=== PATIENT | male | born 1955 | race Caucasian/White ===

== ENCOUNTER 2018-10-13 11:59 | Day surgery (SDC) | payer OTHER ==
[~2018-10-13] VITALS: Ht 177.8 cm; Wt 117.8 kg
[~2018-10-13 11:59] MED LIST: Aspirin EC81 MG PO; Glipizide-Metf1 EAC2 PO; HYDCHL50 PO; JARDIANCE25 MG PO; LOSARTAN POTAS100 MG PO; METO100ER PO; METTREX2.5 PO; MULTI VITAMIN1 EACH PO; NAPR220 PO; OCUVITE ADULT1 EACH PO; POTCHL10ER PO; Pravachol20 MG PO; Psyllium Fibe0.52 GM PO; TAMS.4ER PO
--- NOTE | 2018-10-13 13:45 | NUR ---
10/13/18 3838 May Jordan INJECTED 1 CC SALINE TO RAISE POLYP FOR POLYPECTOMY.
--- NOTE | 2018-10-13 13:46 | NUR ---
10/13/18 6656 May Jordan INJECTED 1 CC SALINE TO RAISE POLYP FOR POLYPECTOMY.
== END 2018-10-13 14:09 | disposition home or self-care (01) ==
LOC: ORSCSDS 11:59
PROVIDERS: Internal Medicine Gastroenterology
PROC: 0DBP8ZX Excision of Rectum, Via Natural or Artificial Opening Endoscopic, Diagnostic (ICD-10-PCS; principal; 2018-10-13 13:30)
DX: Z12.11 Encounter for screening for malignant neoplasm of colon (principal); D12.8 Benign neoplasm of rectum; K57.30 Diverticulosis of large intestine without perforation or abscess without bleeding; K64.8 Other hemorrhoids; E11.9 Type 2 diabetes mellitus without complications; I10 Essential (primary) hypertension; G47.33 Obstructive sleep apnea (adult) (pediatric); E66.01 Morbid (severe) obesity due to excess calories; Z68.37 Body mass index [BMI] 37.0-37.9, adult; Z79.899 Other long term (current) drug therapy; Z79.82 Long term (current) use of aspirin
CPT/HCPCS: 82947; 88305; J2405; J7120

== ENCOUNTER 2024-12-21 12:29 | Inpatient (IN) | payer OTHER ==
[~2024-12-21] VITALS: Ht 177.8 cm; Wt 95.9 kg
[2024-12-21] VITALS (25 sets, daily range): BP systolic 107–134; BP diastolic 65–82
[~2024-12-21 12:29] MED LIST changes: -CARV3.125 PO; -DOCU100 PO; -FURO20 PO; -IRON TABLET PO; -MAGNESIUM OXID500 MG PO; -MELATONIN5 M1 PO; -MIDODRINE HCL10 M2 PO; -MIRALAX17 GM PO; -OMEGA-3 FISH O1 EAC6 PO; -OZEMPIC0.25 MG/02 SC; -PANT40 PO; -POTA10T PO; -PRAV20 PO; -PROP10 PO; -SPIR50 PO; -SULTRIDS PO
[2024-12-21] MEDS ORDERED: NS 1,000 ML IV SCH ×2 (13:15→13:30)
[2024-12-21 13:25] LABS: BASOPHILS ABSOLUTE AUTO 0.09 K/mm3 (0.00-0.23); BASOPHILS PERCENT AUTO 0 % (0-2); EOSINOPHILS ABSOLUTE AUTO 0.02 K/mm3 (0.00-0.68); EOSINOPHILS PERCENT AUTO 0 % (0-6); Hematocrit 49.8 % (37.0-53.0); Hemoglobin 17.6 g/dL (13.5-17.5); IMMATURE GRAN ABSOLUTE AUTO 0.58 K/mm3 (0.00-0.10); IMMATURE GRAN PERCENT AUTO 2 % (0-1); LYMPHOCYTES ABSOLUTE AUTO 2.96 K/mm3 (0.84-5.20); LYMPHOCYTES PERCENT AUTO 10 % (21-46); MONOCYTES ABSOLUTE AUTO 1.72 K/mm3 (0.16-1.47); MONOCYTES PERCENT AUTO 6 % (4-13); Mean Corpuscular HGB 27.3 pg (26.0-34.0); Mean Corpuscular HGB Conc 35.3 g/dL (31.5-36.5); Mean Corpuscular Volume 77 fL (80-100); Mean Platelet Volume 8.7 fL (9.1-12.4); NEUTROPHILS ABSOLUTE AUTO 23.22 K/mm3 (1.96-9.15); NEUTROPHILS PERCENT AUTO 81 % (41-73); Platelet Count 479 K/mm3 (150-400); RDW Coefficient Variation 15.2 % (11.7-14.2); RDW Standard Deviation 40.8 fL (35.1-46.3); Red Blood Cell Count 6.45 M/mm3 (4.30-5.90); White Blood Cell Count 28.59 K/mm3 (4.00-11.30)
[2024-12-21] MEDS ORDERED: CALCIUM GLUC IN NACL, ISO-OSM 100 ML IV ONE (13:30)
[2024-12-21 13:41] LABS: Source, Urine Clean Catch
[2024-12-21 13:44] LABS: Appearance, Urine Clear (Clear); Bilirubin, Urine Neg (Neg); Blood, Urine Neg (Neg); Color, Urine Yellow (P-Yellow); Glucose Qualitative, Urine 4+ (Neg); Ketones, Urine Neg (Neg); Leukocyte Esterase, Urine Neg (Neg); Nitrite, Urine Neg (Neg); Protein, Urine Neg (Neg); Specific Gravity, Urine 1.015 (1.003-1.022); Urobilinogen, Urine NORM (Normal)
[2024-12-21 13:48] LABS: Magnesium, Blood 2.9 mg/dL (1.6-2.4)
[2024-12-21 14:01] LABS: Albumin, Blood 2.4 g/dL (3.4-5.0); Albumin/Globulin Ratio 0.7 (0.8-1.8); Bilirubin, Total 0.8 mg/dL (0.1-1.0); Bun/Creatinine Ratio 38.5 (12.0-20.0); Calcium, Blood 7.9 mg/dL (8.5-10.1); Creatinine, Blood 1.3 mg/dL (0.60-1.20); Globulin, Blood 3.4 g/dL (2.2-4.0); Total Protein, Blood 5.8 g/dL (6.4-8.2)
[2024-12-21] MEDS ORDERED: SODIUM CHLORIDE 3% IV SCH (14:05)
[2024-12-21] MEDS ORDERED: Insulin Regular 100 Unit/ML 1ML Dose IV ONE (14:05)
[2024-12-21] MEDS ORDERED: Polyethylene Glycol 3350 17 gm PO PRN (15:20)
[2024-12-21] MEDS ORDERED: FLU VACC TS2024-25(6MOS UP)/PF 45 MCG/0.5 ML SYRINGE IM SCH (15:20)
[2024-12-21 15:22] LABS: International Normalized Ratio 1.24; Prothrombin Time Results 13.1 Sec (9.7-11.5)
[2024-12-21] MEDS ORDERED: CefTRIAXone Sodium 1,000 MG in NS 100 ML IV SCH (16:00)
[2024-12-21 16:17] LABS: Osmolality, Urine 624 mos/kg (15-1400)
[2024-12-21 16:21] LABS: Sodium, Urine, Random <5 mmol/L (20-110)
[2024-12-21] MEDS ORDERED: Insulin Human Lispro 100 Units/ML 3ML Syringe SC SCH (16:30)
[2024-12-21 16:44] LABS: Automated BF RBC Count 0.038 M/mm3 (0-0); Automated BF WBC Count 0.807 K/mm3 (0-999)
[2024-12-21 16:46] LABS: Body Fluid WBC Count 807 /mm3 (0-999); RBC Count, Body Fluid 38000 /mm3 (0-0)
[2024-12-21] MEDS ORDERED: Sodium Bicarb 8.4% Inj 150 MEQ in Dextrose 5% 1,000 ML IV SCH (16:55)
[2024-12-21 17:25] LABS: Total Cell Count, Body Fluid 100
[2024-12-21 17:27] LABS: Appearance, Body Fluid Cloudy (Clear); Color, Body Fluid Red (None-Yellow)
--- NOTE | 2024-12-21 18:17 | NUR ---
PT SUMMARY THIS RN ASSUMED CARE OF PT FROM ED AT 1630. PT IS ALERT AND ORIENTED X4, CALLS APPROPRIATLEY. PT HEART RATE IS IN ST DEGREE AV BLOCK FROM EKG IN ED, MONITOR SHOWS SINUS RYLAN, BLOOD PRESSURE STABLE AT 116/75 MAP OF 87, PT DENIES CHEST PAIN UPON ASSESSMENT. PT SOUNDS CLEAR/DIMINISHED ON ROOM AIR SATTING >95% PT HAS LOPEZ CATHETER DRAINING TO GRAVITY. POTASSIUM HAS BEEN HIGH AT 7, HAS BEEN NOTIFIED OF PT ARRIVAL TO ICU, IS CONSULTED, BMP IS PENDING STILL. NO OTHER INTERVENTIONS AT THIS TIME. PT GOT ONE LITER PARACENTISIS OFF COLLECTED FOR TESTING. PLAN OF CARE CONTINUED.
[2024-12-21 18:23] LABS: Bun/Creatinine Ratio 43.4 (12.0-20.0); Calcium, Blood 8.2 mg/dL (8.5-10.1); Creatinine, Blood 1.13 mg/dL (0.60-1.20)
[2024-12-21 18:24] LABS: Potassium, Blood 6.6 mmol/L (3.5-5.5)
[2024-12-21] MEDS ORDERED: Sodium Zirconium Cyclosilicate 10 GM Packet PO SCH (18:30)
--- NOTE | 2024-12-21 18:44 | NUR ---
PT UPDATE. THIS RN CALLED ABOUT CRITICALLY HIGH POTASSIUM AND LOW SODIUM. WANTED LOKELMA NOW 10 GM AND THEN EVERY 8 HOURS. NO OTHER INTERVENTIONS AT THIS TIME. PT WAS TRANSFERED TO ROOM ICU 9 FOR STAFFING PURPOSES. PLAN OF CARE CONTINUED.
--- NOTE | 2024-12-21 19:48 | NUR ---
ASSUMPTION OF CARE ASSUMED CARE OF PATIENT AT 1900, BEDSIDE SHIFT REPORT RECEIVED FROM ASPEN RN. PT RESTING IN BED, ALERT AND ORIENTED X4. PT ANSWERS QUESTIONS APPROPRIATELY, FOLLOWS DIRECTION WHEN PROMPTED AND IS ABLE TO MAKE HIS NEEDS KNOWN. PT MOVES EXTREMITIES EQUALLY BILATERALLY. HR 50-60'S SINUS, MAP >65. PT DENIES CP/PRESSURE. PT ON RA, OXYGEN SATURATION >95%. ABDOMEN SOFT, BOWEL TONES ACTIVE THROUGHOUT, PT DENIES N/V. LOPEZ IN PLACE PATENT DRAINING YELLOW URINE TO GRAVITY. PIV IN PLACE TO RAC AND LFA. SODIUM BICARD INFUSING AT 100MLS/HR. BED IN LOWEST POSITON, CALL LIGHT WITHIN REACH, PT FAMILY AT THE BEDSIDE. CARE CONTINUES.
[2024-12-21 20:40] LABS: Bun/Creatinine Ratio 45.3 (12.0-20.0); Calcium, Blood 7.5 mg/dL (8.5-10.1); Creatinine, Blood 1.06 mg/dL (0.60-1.20); Potassium, Blood 6.3 mmol/L (3.5-5.5)
[2024-12-21] MEDS ORDERED: Furosemide 10 MG/ML 4ML Vial IV ONE (20:50)
[2024-12-21] MEDS ORDERED: Albumin (Human) 25gm/100ml 100 ML IV SCH (21:00)
[2024-12-21] MEDS ORDERED: Melatonin 5 MG Tablet PO SCH (21:00)
[2024-12-21] MEDS ORDERED: Docusate Sodium/Senna 1 Tab PO SCH (21:00)
--- NOTE | 2024-12-21 22:46 | NUR ---
PT UPDATE CALLED AND SPOKE WITH DR. SOSA CAMPOSING PT LABS. ORDERS RECEIVED FOR LASIX, SEE EMAR. PLAN TO RECHECK LABS IN AM. CARE CONTINUES.
[2024-12-22] VITALS (52 sets, daily range): BP systolic 91–126; BP diastolic 54–110
[2024-12-22] MEDS ORDERED: Insulin Human Lispro 100 Units/ML 3ML Syringe SC SCH
[2024-12-22 04:54] LABS: Beta-hydroxybutyrate 0.9 mg/dL (0.2-2.8)
[2024-12-22 04:59] LABS: Albumin, Blood 3.9 g/dL (3.4-5.0); Bilirubin, Total 1.2 mg/dL (0.1-1.0); Bun/Creatinine Ratio 42.9 (12.0-20.0); Calcium, Blood 8.3 mg/dL (8.5-10.1); Creatinine, Blood 1.12 mg/dL (0.60-1.20); Potassium, Blood 4.9 mmol/L (3.5-5.5); Total Protein, Blood 5.9 g/dL (6.4-8.2)
--- NOTE | 2024-12-22 06:03 | NUR ---
SHIFT SUMMARY PT CONTINUES TO REST IN BED, SLEEPING BUT AROUSABLE. PT ORIENTED X4, ANSWERS QUESTIONS APPROPRIATELY, FOLLOWS DIRECTION WHEN PROMTPED AND IS ABLE TO MAKE HIS NEEDS KNOWN. PT MOVES EXTREMITIES EQUALLY BILATERALLY. HR 50-70'S SINUS, MAP >65. PT DENIES CP/PRESSURE. PT PLACED ON 2LPM VIA NC WHILE SLEEPING, OXYGEN SATURATION >95%. ABDOMEN SOFT, BOWEL TONES ACTIVE THROUGHOUT. TEMP LOPEZ IN PLACE PATENT DRAINING YELLOW URINE TO GRAVITY. PIV IN PLACE TO RAC AND LFA SL. BED IN LOWEST POSITION, CALL LIGHT WITHIN REACH, CARE CONTINUES.
[2024-12-22] MEDS ORDERED: Sodium Zirconium Cyclosilicate 10 GM Packet PO SCH (07:30)
--- NOTE | 2024-12-22 09:39 | NUR ---
UPDATE ASSUMED CARE OF PT @ 0700. PT INITIALLY IN BED, A&OX4. PT STATES HE IS FEELING MUCH BETTER AND READY TO GET UP. TOLERATING PO INTAKE. PT UP TO BSC WITH 1P SBA THIS AM. PT DID WELL AMBULATING WITHOUT ASSISTANCE. HAD SMALL BM. LOPEZ CATHETER REMOVED. NOW IN RECLINER WITH CALL LIGHT. PT DENIES COMPLAINTS AT THIS TIME.
[2024-12-22] MEDS ORDERED: MAGNESIUM OXID500 MG PO (10:51)
[2024-12-22] MEDS ORDERED: FURO20 PO (11:26)
[2024-12-22] MEDS ORDERED: SPIR50 PO (11:27)
[2024-12-22] MEDS ORDERED: DOCU100 PO (11:28)
[2024-12-22] MEDS ORDERED: OMEGA-3 FISH O1 EAC6 PO (11:29)
[2024-12-22] MEDS ORDERED: POTA10T PO (11:30)
[2024-12-22] MEDS ORDERED: PRAV20 PO (11:30)
[2024-12-22] MEDS ORDERED: OZEMPIC0.25 MG/02 SC (11:31)
[2024-12-22] MEDS ORDERED: PROP10 PO (11:31)
--- NOTE | 2024-12-22 11:37 | NUR ---
MEDICATIONS MED LIST RECEIVED FROM JAYLEN GONZALES, UPDATED LIST IN [place]. LAST VISIT NOTES ALSO IN PHYSICAL CHART.
[2024-12-22] MEDS ORDERED: CefTRIAXone Sodium 1,000 MG in NS 100 ML IV SCH (12:00)
--- NOTE | 2024-12-22 17:02 | NUR ---
SHIFT SUMMARY PT REMAINS A&OX4. AMBULATING TO CHAIR AND COMMODE WITH SBA TO MANAGE LINES. TOLERATING PO INTAKE WELL. NOT HAVING DIFFICULTY URINATING. HAS NO COMPLAINTS CURRENTLY, INQUIRING ABOUT GOING HOME. PT NOW MEDICAL STATUS.
--- NOTE | 2024-12-22 20:34 | NUR ---
ASSUMPTION OF CARE: ASSUMED CARE OF PT FROM CHIKA GLORIA AT 1900. PT MED STATUS NO TELE. ALERT AND ORIENTED, MAKING NEEDS KNOWN AND FOLLOWING COMMANDS. ON RA WITH SPO2 94% WITH SPOT CHECK, DENIES SOB. LUNGS CLEAR/DIM. SBP 115, DENIES CP/PRESSURE. VOIDING INTO COMMODE IND. PIV TO LH AND RAC BOTH PATENT AND SALINE LOCKED. TOLERATING PO INTAKE WITH NO C/O N/V. BED LOW AND LOCKED, CALL LIGHT IN REACH.
[2024-12-22] MEDS ORDERED: Pravastatin Sodium 20 MG Tab PO SCH (21:00)
--- NOTE | 2024-12-23 00:42 | NUR ---
UPDATE: PT TRANSFERRED TO MEDICAL FLOOR ROOM 326 VIA WHEELCHAIR, REPORT GIVEN TO TAVO DE LA PAZ. ALL BELONGING SENT WITH PT.
--- NOTE | 2024-12-23 02:20 | NUR ---
SHIFT SUMMARY/ICU TRANSFER NOTE: PT TRANSFERRED FROM ICU TO MED FLOOR @0050. PT BROUGHT ALL HIS BELONINGS WITH HIM. EDUCATED MAINTENANCE AND ENGINEERING MANAGER LIGHT, FALL PRECAUTIONS. PT TRANSFERRED FROM W/C TO HOSPITAL BED INDEPENDENTLY, PT IS AMBULATORY. PT DENIES PAIN AND DISCOMFORT. MRI QUESTIONARY COMPLETED AND SCANNED TO IMAGING. PT IS A/O X4, ABLE TO MAKE HIS NEEDS KNOWN AND COOPERATIVE WITH CARE. PLAN IS FOR MRI TODAY. BED AT THE LOWEST POSITION, CALL LIGHT W/I REACH.
[2024-12-23 03:24] VITALS: BP 122/84
--- NOTE | 2024-12-23 03:56 | NUR ---
NEW T-ORDER FROM : [facility] Q6HRS. ENTERED TO MD2U, SEE EMAR.
[2024-12-23 05:03] LABS: Hematocrit 45.3 % (37.0-53.0); Mean Corpuscular HGB 27.5 pg (26.0-34.0); Mean Corpuscular HGB Conc 35.3 g/dL (31.5-36.5); Mean Corpuscular Volume 78 fL (80-100); Mean Platelet Volume 8.9 fL (9.1-12.4); Platelet Count 307 K/mm3 (150-400); RDW Coefficient Variation 15.3 % (11.7-14.2); RDW Standard Deviation 43.2 fL (35.1-46.3); Red Blood Cell Count 5.81 M/mm3 (4.30-5.90); White Blood Cell Count 18.43 K/mm3 (4.00-11.30)
[2024-12-23 05:31] LABS: Albumin, Blood 2.9 g/dL (3.4-5.0); Albumin/Globulin Ratio 1.2 (0.8-1.8); Bun/Creatinine Ratio 40.7 (12.0-20.0); Calcium, Blood 7.7 mg/dL (8.5-10.1); Creatinine, Blood 0.91 mg/dL (0.60-1.20); Globulin, Blood 2.4 g/dL (2.2-4.0); Percent Saturation 17.6 % (20.0-50.0); Phosphorus, Blood 3.6 mg/dL (2.5-4.9); Potassium, Blood 4.7 mmol/L (3.5-5.5); Total Protein, Blood 5.3 g/dL (6.4-8.2)
[2024-12-23] MEDS ORDERED: Insulin Human Lispro 100 Units/ML 3ML Syringe SC SCH (06:00)
[2024-12-23 07:54] VITALS: BP 114/76
[2024-12-23] MEDS ORDERED: Carvedilol 3.125 MG Tab PO SCH (08:00)
[2024-12-23] MEDS ORDERED: Tamsulosin HCl 0.4 MG Cap PO SCH (09:00)
[2024-12-23] MEDS ORDERED: Polyethylene Glycol 3350 17 gm PO SCH (09:00)
[2024-12-23] MEDS ORDERED: Docosahexanoic Acid/EPA 1,000 MG CAP PO SCH (09:00)
[2024-12-23] MEDS ORDERED: Spironolactone 25 MG Tab PO SCH (09:00)
[2024-12-23] MEDS ORDERED: Furosemide 40 MG Tab PO SCH (09:00)
[2024-12-23 15:23] VITALS: BP 106/69
[2024-12-23] MEDS ORDERED: POTA10T PO (16:22)
[2024-12-23] MEDS ORDERED: Sodium, Potassium,Mag Sulfates 354 ML PO ONE (17:00)
[2024-12-23] MEDS ORDERED: Furosemide 80 MG Tab PO SCH (18:00)
--- NOTE | 2024-12-23 18:49 | NUR ---
PATIENT A/OX4, UP INDEPENDENTLY IN ROOM. VSS, ON RA. 1200 ML FLUID RESTRICTION. PARACENTESIS ORDER FOR THIS EVENING. NPO AFTER 1000 TOMORROW FOR EGD. BOWEL PREP GIVEN FOR CONSTIPATION PER MD ORDER. Q6 HOURS BLOOD SUGARS, COVERAGE PER SLIDING SCALE. NO NEW CONCERNS THIS SHIFT. PATIENT ABLE TO MAKE NEEDS KNOWN.
[2024-12-23] MEDS ORDERED: IRON TABLET PO (18:56)
[2024-12-23 19:49] VITALS: BP 94/73
[2024-12-23] MEDS ORDERED: NS 250 ML IV PRN (20:20)
[2024-12-24] VITALS (12 sets, daily range): BP systolic 91–115; BP diastolic 59–80
--- NOTE | 2024-12-24 02:57 | NUR ---
SHIFT SUMMARY PT HAS MULTIPLE LIQUID STOOLS D/T BOWEL PREP ORDER FOR C/O CONSTIPATION. PT DID NOT HAVE THE PLANNED THORACENTESIS @HS OR DURING THIS SHIFT. PT DENIES PAIN AND DISCOMFORT. VSS. Q6 BG 257. 1.2L FLUID RESTRICTION. PLAN IS TO HAVE EGD TODAY, NPO AFTER 1000. H20 AND ICE CHIPS UNTIL THEN. BED AT THE LOWEST POSITION, CALL LIGHT W/I REACH.
[2024-12-24 06:02] LABS: Hematocrit 44.6 % (37.0-53.0); Hemoglobin 15.5 g/dL (13.5-17.5); Mean Corpuscular HGB 27.5 pg (26.0-34.0); Mean Corpuscular HGB Conc 34.8 g/dL (31.5-36.5); Mean Corpuscular Volume 79 fL (80-100); Mean Platelet Volume 9.1 fL (9.1-12.4); Platelet Count 322 K/mm3 (150-400); RDW Coefficient Variation 15.5 % (11.7-14.2); RDW Standard Deviation 44.1 fL (35.1-46.3); Red Blood Cell Count 5.63 M/mm3 (4.30-5.90); White Blood Cell Count 14.76 K/mm3 (4.00-11.30)
[2024-12-24 06:35] LABS: Albumin, Blood 2.5 g/dL (3.4-5.0); Bilirubin, Total 0.6 mg/dL (0.1-1.0); Bun/Creatinine Ratio 41.3 (12.0-20.0); Calcium, Blood 7.7 mg/dL (8.5-10.1); Creatinine, Blood 0.92 mg/dL (0.60-1.20); Globulin, Blood 2.6 g/dL (2.2-4.0); Potassium, Blood 3.3 mmol/L (3.5-5.5); Total Protein, Blood 5.1 g/dL (6.4-8.2)
[2024-12-24] MEDS ORDERED: Lactated Ringer's 1,000 ML IV SCH (12:50)
[2024-12-24] MEDS ORDERED: Albumin (Human) 25gm/100ml 100 ML IV SCH (13:00)
[2024-12-24 13:45] LABS: Bun/Creatinine Ratio 33.3 (12.0-20.0); Calcium, Blood 8.1 mg/dL (8.5-10.1); Creatinine, Blood 1.05 mg/dL (0.60-1.20); Potassium, Blood 3.7 mmol/L (3.5-5.5)
--- NOTE | 2024-12-24 13:52 | NUR ---
12/24/24 1352 Misbah Rudolph History, Chart, Medications and Allergies reviewed before start of procedure.Pre-Op teaching done. Patient verbalizes understanding. See Anesthesia record. MONITOR INTACT WITH CONTINUOUS PULSE OXIMETRY, CONTINUOUS END TITAL CO2, 3-LEAD EKG AND INTERMITTENT BLOOD PRESSURE.3-LEAD EKG REVIEWED WITH PHYSICIAN PRIOR TO START OF PROCEDURE.O2 VIA POM INTACT THROUGHOUT SEDATION/PROCEDURE.
[2024-12-24] MEDS ORDERED: propofoL 20 ML IV ONE (13:54)
--- NOTE | 2024-12-24 19:17 | NUR ---
SHIFT SUMMARY A/Ox4, PLEASANT AND COOPERATIVE WITH CARE, ABLE TO MAKE NEEDS KNOWN, AND USES CALL LIGHT APPROPRIATLEY. PT DENIES PAIN. PARACENTESIS COMPLETED TODAY - 8 L/MIN REMOVED, ALBUMIN ADMINISTERED PER ORDERS. EDG ALSO COMPLETED THIS SHIFT. PT VITALS WNL POST OP. TOLERATING DIET AND MEDS WELL. REMAINS ON 1200 ML FLUID RESTRICTION. PT CURRENTLY RESTING IN HOSPITAL BED WITH BED IN LOWEST POSITION, VISITING WITH FAMILY. CALL LIGHT WITHIN REACH. INDPENDENT IN ROOM.
[2024-12-25 04:28] VITALS: BP 91/65
--- NOTE | 2024-12-25 05:02 | NUR ---
SHIFT SUMMARY ADMITTED FOR HYPERKALEMIA - RESOLVED. FULL CODE. HE IS HOPEFUL FOR DC HOME TODAY. PARACENTESIS AND UPPER EGD PERFORMED ON PREVIOUS SHIFT. GI CONSULT IS DR. MYERS. 1200 ML FLUID RESTRICTION. HE WILL DC ON PROPHYLACTIC PO BACTRIM HE RECEIVES WEEKLY PARACENTESIS PROCEDURES. HX OF KHAN, CIRRHOSIS, ESOPHAGEAL VARICES, CHRONIC ASCITES. HE IS ON RA, A&O X4, INDEPENDENT.
[2024-12-25 07:22] LABS: HEPATITIS B SURFACE ANTIBODY <3.10 IU/L
[2024-12-25 07:26] VITALS: BP 104/66
[2024-12-25] MEDS ORDERED: Trimethoprim/Sulfamethoxazole SS Tab PO SCH (09:00)
[2024-12-25] MEDS ORDERED: Midodrine 5 MG Tab PO PRN (09:35)
[2024-12-25] MEDS ORDERED: Midodrine 5 MG Tab PO ONE ×2 (09:40→11:15)
[2024-12-25 10:38] VITALS: BP 107/70
--- NOTE | 2024-12-25 11:30 | NUR ---
NOTE PT BLOOD PRESSURE WAS 104/66. HELD COREG, ALDACTONE, AND LASIX PER DOC ORDERS, REPORTED NO PARAMETERS LISTED FOR COREG. DR. DAI ORDERED ONE TIME DOSE OF MIDODRINE 5MG. BREAK RN GAVE MED. RECHECKED BP 30 MIN LATER, BLOOD PRESSURE WAS 107/70. PT REPORTED NO S/S OF HYPOTENSION. DR. DAI ORDERED ANOTHER ONE TIME ORDER OF MIDODRINE AND TO GIVE COREG ALDACTONE AND LASIX. PT IN BED, BED IN LOWEST POSITION CALL LIGHT IN REACH.
[2024-12-25 12:08] VITALS: BP 98/72
[2024-12-25 14:08] LABS: HEPATITIS A ANTIBODIES, TOTAL Negative (Negative)
[2024-12-25 14:15] VITALS: BP 93/65
[2024-12-25] MEDS ORDERED: CARV3.125 PO (14:37)
[2024-12-25] MEDS ORDERED: MELATONIN5 M1 PO (14:39)
[2024-12-25] MEDS ORDERED: MIRALAX17 GM PO (14:39)
[2024-12-25] MEDS ORDERED: MIDODRINE HCL10 M2 PO (14:39)
[2024-12-25] MEDS ORDERED: TAMS.4ER PO (14:40)
[2024-12-25] MEDS ORDERED: SULTRIDS PO (14:40)
[2024-12-25] MEDS ORDERED: PANT40 PO (14:40)
[2024-12-25 16:15] VITALS: BP 100/77
--- NOTE | 2024-12-25 18:44 | NUR ---
DISCHARGE NOTE PT A&OX4. PT ADMITTED DUE TO HYPOKALEMIA. PT INDEPENDENT IN ROOM. PT ON FLUID RESTRICTION. LAST BLOOD PRESSURE WAS 100/77, GAVE DOSE OF MIDODRINE PER ORDERS. PT REPORTED NO S/S OF CHEST PAIN OR HYPOTENSION. WENT OVER DISCHARGE INSTRUCTIONS AND MEDS. MEDS FAXED TO PREFERRED PHARMACY. PT LEFT WITH BELONINGS. IV D/C. PT ESCORTED VIA WHEELCHAIR TO PERSONAL VEHICLE.
[2024-12-25 19:43] LABS: HBV CORE ANTIBODIES,TOTAL Negative (Negative)
== END 2024-12-25 16:32 | disposition home or self-care (01) | DRG 640 ==
LOC: ER 12:29 → ICUE 15:17 → MEDS 15:17 → ICUE 16:33 → MEDS 12-23 01:10
PROVIDERS: Emergency Medicine; Hospitalist; Internal Medicine; Internal Medicine Gastroenterology; Nurse Anesthetist, Certified Registered; Physician Assistant; ADMIT Internal Medicine
PROC: 0W9G3ZZ Drainage of Peritoneal Cavity, Percutaneous Approach (ICD-10-PCS; principal; 2024-12-21)
PROC: 0DB78ZX Excision of Stomach, Pylorus, Via Natural or Artificial Opening Endoscopic, Diagnostic (ICD-10-PCS; 2024-12-24)
PROC: 0W9G3ZZ Drainage of Peritoneal Cavity, Percutaneous Approach (ICD-10-PCS; 2024-12-24)
DX: E87.5 Hyperkalemia (principal); K65.2 Spontaneous bacterial peritonitis; R18.8 Other ascites; I85.10 Secondary esophageal varices without bleeding; N17.9 Acute kidney failure, unspecified; J90 Pleural effusion, not elsewhere classified; K76.6 Portal hypertension; E87.1 Hypo-osmolality and hyponatremia; K74.69 Other cirrhosis of liver; E87.70 Fluid overload, unspecified; N40.1 Benign prostatic hyperplasia with lower urinary tract symptoms; R33.8 Other retention of urine; K76.89 Other specified diseases of liver; I10 Essential (primary) hypertension; E78.5 Hyperlipidemia, unspecified; E66.01 Morbid (severe) obesity due to excess calories; G47.33 Obstructive sleep apnea (adult) (pediatric); D75.838 Other thrombocytosis; K59.09 Other constipation; K26.9 Duodenal ulcer, unspecified as acute or chronic, without hemorrhage or perforation; E86.0 Dehydration; I44.0 Atrioventricular block, first degree; I45.10 Unspecified right bundle-branch block; E11.65 Type 2 diabetes mellitus with hyperglycemia; E88.810 Metabolic syndrome; T50.995A Adverse effect of other drugs, medicaments and biological substances, initial encounter; K75.81 Nonalcoholic steatohepatitis (NASH); E87.6 Hypokalemia; R55 Syncope and collapse; K74.60 Unspecified cirrhosis of liver; R93.2 Abnormal findings on diagnostic imaging of liver and biliary tract; K80.20 Calculus of gallbladder without cholecystitis without obstruction; D75.1 Secondary polycythemia; Z79.84 Long term (current) use of oral hypoglycemic drugs; Z79.82 Long term (current) use of aspirin; Z68.30 Body mass index [BMI] 30.0-30.9, adult
CPT/HCPCS: 36415; 49083; 51702; 51798; 71045; 74183; 76705; 76770; 80048; 80053; 81003; 82010; 82728; 82947; 83540; 83550; 83605; 83735; 83930; 83935; 84100; 84145; 84300; 85025; 85027; 85610; 85730; 86704; 86708; 87040; 87070; 87075; 87205; 88305; 88342; 89051; 93005; 93010; 94760; 96361-59; 96374-59; 96375-59; 99285-25; A9270; A9581; J0612; J0696; J1815; J1940; J2704; J7030; J7050; J7070; J7120; P9047

== ENCOUNTER → 2024-12-21 | Outpatient (CLI) | payer OTHER ==
[~2024-12-21] MED LIST changes: +CARV3.125 PO; +DOCU100 PO; +FURO20 PO; +IRON TABLET PO; +MAGNESIUM OXID500 MG PO; +MELATONIN5 M1 PO; +MIDODRINE HCL10 M2 PO; +MIRALAX17 GM PO; +OMEGA-3 FISH O1 EAC6 PO; +OZEMPIC0.25 MG/02 SC; +PANT40 PO; +POTA10T PO; +PRAV20 PO; +PROP10 PO; +SPIR50 PO; +SULTRIDS PO
[2024-12-21 11:36] LABS: BASOPHILS ABSOLUTE AUTO 0.12 K/mm3 (0.00-0.23); BASOPHILS PERCENT AUTO 0 % (0-2); EOSINOPHILS ABSOLUTE AUTO 0.03 K/mm3 (0.00-0.68); EOSINOPHILS PERCENT AUTO 0 % (0-6); Hematocrit 50.6 % (37.0-53.0); Hemoglobin 17.7 g/dL (13.5-17.5); IMMATURE GRAN ABSOLUTE AUTO 0.77 K/mm3 (0.00-0.10); IMMATURE GRAN PERCENT AUTO 3 % (0-1); LYMPHOCYTES ABSOLUTE AUTO 2.94 K/mm3 (0.84-5.20); LYMPHOCYTES PERCENT AUTO 10 % (21-46); MONOCYTES ABSOLUTE AUTO 1.67 K/mm3 (0.16-1.47); MONOCYTES PERCENT AUTO 5 % (4-13); Mean Corpuscular HGB 27.2 pg (26.0-34.0); Mean Corpuscular Volume 78 fL (80-100); Mean Platelet Volume 8.8 fL (9.1-12.4); NEUTROPHILS PERCENT AUTO 82 % (41-73); Platelet Count 424 K/mm3 (150-400); White Blood Cell Count 30.83 K/mm3 (4.00-11.30)
[2024-12-21 11:50] LABS: Albumin, Blood 2.4 g/dL (3.4-5.0); Albumin/Globulin Ratio 0.8 (0.8-1.8); Bilirubin, Total 0.9 mg/dL (0.1-1.0); Bun/Creatinine Ratio 34.3 (12.0-20.0); Calcium, Blood 8.3 mg/dL (8.5-10.1); Creatinine, Blood 1.43 mg/dL (0.60-1.20); Globulin, Blood 2.9 g/dL (2.2-4.0); Total Protein, Blood 5.3 g/dL (6.4-8.2)
[2024-12-21 12:00] LABS: Potassium, Blood 7.8 mmol/L (3.5-5.5)
== END | disposition home or self-care (01) ==
LOC: LAB SHORT 11:31 → LAB 11:31
PROVIDERS: Family Medicine
DX: R55 Syncope and collapse (principal)
CPT/HCPCS: 80053; 85025

== ENCOUNTER 2025-01-07 15:25 | Observation (INO) | payer OTHER ==
[~2025-01-07] VITALS: Ht 177.8 cm; Wt 102.1 kg
[~2025-01-07 15:25] MED LIST changes: +CARV3.125 PO; +DOCU100 PO; +FURO20 PO; +IRON TABLET PO; +MAGNESIUM OXID500 MG PO; +MELATONIN5 M1 PO; +MIDODRINE HCL10 M2 PO; +MIRALAX17 GM PO; +OMEGA-3 FISH O1 EAC6 PO; +OZEMPIC0.25 MG/02 SC; +PANT40 PO; +POTA10T PO; +PRAV20 PO; +PROP10 PO; +SPIR50 PO; +SULTRIDS PO
[2025-01-07 16:11] LABS: BASOPHILS ABSOLUTE AUTO 0.08 K/mm3 (0.00-0.23); BASOPHILS PERCENT AUTO 1 % (0-2); EOSINOPHILS ABSOLUTE AUTO 0.17 K/mm3 (0.00-0.68); EOSINOPHILS PERCENT AUTO 1 % (0-6); Hematocrit 45.6 % (37.0-53.0); Hemoglobin 16.2 g/dL (13.5-17.5); IMMATURE GRAN ABSOLUTE AUTO 0.24 K/mm3 (0.00-0.10); IMMATURE GRAN PERCENT AUTO 2 % (0-1); LYMPHOCYTES ABSOLUTE AUTO 2.38 K/mm3 (0.84-5.20); LYMPHOCYTES PERCENT AUTO 19 % (21-46); MONOCYTES ABSOLUTE AUTO 1.65 K/mm3 (0.16-1.47); MONOCYTES PERCENT AUTO 13 % (4-13); Mean Corpuscular HGB 28.2 pg (26.0-34.0); Mean Corpuscular HGB Conc 35.5 g/dL (31.5-36.5); Mean Corpuscular Volume 79 fL (80-100); Mean Platelet Volume 8.6 fL (9.1-12.4); NEUTROPHILS ABSOLUTE AUTO 7.97 K/mm3 (1.96-9.15); NEUTROPHILS PERCENT AUTO 64 % (41-73); Platelet Count 350 K/mm3 (150-400); RDW Coefficient Variation 16.2 % (11.7-14.2); RDW Standard Deviation 46.3 fL (35.1-46.3); Red Blood Cell Count 5.74 M/mm3 (4.30-5.90); White Blood Cell Count 12.49 K/mm3 (4.00-11.30)
[2025-01-07 16:24] LABS: International Normalized Ratio 1.17; Prothrombin Time Results 12.4 Sec (9.7-11.5)
[2025-01-07] MEDS ORDERED: Diazepam 2 MG Tab PO ONE (17:00)
[2025-01-07 17:34] LABS: Albumin, Blood 2.4 g/dL (3.4-5.0); Albumin/Globulin Ratio 0.8 (0.8-1.8); Bilirubin, Total 0.3 mg/dL (0.1-1.0); Bun/Creatinine Ratio 40.6 (12.0-20.0); Calcium, Blood 7.5 mg/dL (8.5-10.1); Creatinine, Blood 1.28 mg/dL (0.60-1.20); Globulin, Blood 3.1 g/dL (2.2-4.0); Potassium, Blood 5.2 mmol/L (3.5-5.5); Total Protein, Blood 5.5 g/dL (6.4-8.2)
[2025-01-07] MEDS ORDERED: Ondansetron HCl 2 MG / ML 2ML Vial IV PRN (19:00)
[2025-01-07] MEDS ORDERED: Furosemide 10 MG/ML 4ML Vial IV ONE (19:00)
[2025-01-07 19:15] LABS: Source, Urine Clean Catch
[2025-01-07 19:17] LABS: Appearance, Urine Clear (Clear); Bilirubin, Urine Neg (Neg); Blood, Urine Neg (Neg); Color, Urine Yellow (P-Yellow); Glucose Qualitative, Urine 4+ (Neg); Ketones, Urine Neg (Neg); Leukocyte Esterase, Urine Neg (Neg); Nitrite, Urine Neg (Neg); Protein, Urine Neg (Neg); Specific Gravity, Urine 1.015 (1.003-1.022); Urobilinogen, Urine NORM (Normal)
[2025-01-07 19:41] LABS: Base Excess Venous -2.7 mmol/L; Bicarbonate Venous 23.4 mmol/L (24.0-30.0); PCO2 Venous 28.9 mmHg (38-42); pH Blood Venous 7.47 (7.34-7.37)
[2025-01-07] MEDS ORDERED: Midodrine 5 MG Tab PO ONE (20:00)
[2025-01-07] MEDS ORDERED: Trimethoprim/Sulfamethoxazole DS Tab PO SCH (21:00)
[2025-01-07] MEDS ORDERED: Insulin Human Lispro 100 Units/ML 3ML Syringe SC SCH (21:00)
[2025-01-07] MEDS ORDERED: Furosemide 10 MG/ML 4ML Vial ONE (21:28)
[2025-01-07 23:07] LABS: Bun/Creatinine Ratio 38.9 (12.0-20.0); Calcium, Blood 7.7 mg/dL (8.5-10.1); Creatinine, Blood 1.26 mg/dL (0.60-1.20); Potassium, Blood 4.5 mmol/L (3.5-5.5)
[2025-01-08] VITALS (7 sets, daily range): BP systolic 91–108; BP diastolic 62–94
--- NOTE | 2025-01-08 05:42 | NUR ---
SHIFT SUMMARY: PT ARRIVED ON UNIT ABLE TO MAKE HIS NEEDS KNOW, VSS, ON ROOM AIR, CONT OF BAB, IS ABLE TO BE UP ADLIB FOR BATHROOM USE USES BEDSIDE COMODE, 1.2L OUT THIS SHIFT POST LASIX DOSE, LOAN [place] ABD PARACENTESIS SET FOR DAY SHIFT, CALL LIGHT AND FREQUENTLY USED ITEMS WITH IN REACH AT THIS TIME
[2025-01-08] MEDS ORDERED: Pantoprazole Sodium 40 MG Tab PO SCH (06:00)
[2025-01-08 06:27] LABS: Hemoglobin 16.2 g/dL (13.5-17.5); Mean Corpuscular HGB 27.9 pg (26.0-34.0); Mean Corpuscular HGB Conc 35.2 g/dL (31.5-36.5); Mean Corpuscular Volume 79 fL (80-100); Mean Platelet Volume 8.5 fL (9.1-12.4); Platelet Count 342 K/mm3 (150-400); RDW Coefficient Variation 16.9 % (11.7-14.2); RDW Standard Deviation 46.2 fL (35.1-46.3); White Blood Cell Count 12.43 K/mm3 (4.00-11.30)
[2025-01-08 06:52] LABS: Albumin, Blood 2.5 g/dL (3.4-5.0); Albumin/Globulin Ratio 0.8 (0.8-1.8); Bilirubin, Total 0.4 mg/dL (0.1-1.0); Bun/Creatinine Ratio 41.4 (12.0-20.0); Calcium, Blood 7.9 mg/dL (8.5-10.1); Creatinine, Blood 1.16 mg/dL (0.60-1.20); Globulin, Blood 3.1 g/dL (2.2-4.0); Magnesium, Blood 2.5 mg/dL (1.6-2.4); Potassium, Blood 4.7 mmol/L (3.5-5.5); Total Protein, Blood 5.6 g/dL (6.4-8.2)
[2025-01-08] MEDS ORDERED: Carvedilol 3.125 MG Tab PO SCH (08:00)
[2025-01-08] MEDS ORDERED: Tamsulosin HCl 0.4 MG Cap PO SCH (09:00)
[2025-01-08] MEDS ORDERED: Docusate Sodium Liquid 100 MG UDC PO SCH (09:00)
[2025-01-08] MEDS ORDERED: Magnesium Oxide 400 MG Tab PO SCH (09:00)
[2025-01-08] MEDS ORDERED: Docosahexanoic Acid/EPA 1,000 MG CAP PO SCH (09:00)
[2025-01-08] MEDS ORDERED: Midodrine 5 MG Tab PO SCH (09:00)
[2025-01-08] MEDS ORDERED: Empagliflozin 25 MG TAB PO SCH (09:00)
[2025-01-08] MEDS ORDERED: Furosemide 10 MG/ML 4ML Vial IV SCH (09:00)
[2025-01-08] MEDS ORDERED: Spironolactone 25 MG Tab PO SCH (09:00)
[2025-01-08] MEDS ORDERED: Polyethylene Glycol 3350 17 gm PO SCH (09:00)
[2025-01-08] MEDS ORDERED: Albumin (Human) 25gm/100ml 100 ML IV ONE (12:35)
[2025-01-08 13:55] LABS: Calcium, Blood 7.9 mg/dL (8.5-10.1); Creatinine, Blood 1.18 mg/dL (0.60-1.20); Potassium, Blood 5.1 mmol/L (3.5-5.5)
--- NOTE | 2025-01-08 15:00 | NUR ---
TRANSFER OF CARE PT HAD PARACENTESIS DONE TODAY 12 L REMOVED, ALBUMIN TRANSFUSED AFTER PER ORDERS. PT MAP REMAINS ABOVE 65 WITH SOFT B/P. B/P HAS BEEN LOW 100'S SYSTOLIC TO 90'S. REMAINED AFEBRILE, SINUS RYTHM. PT HAS BEEN IND AMBULATING ROOM, CALLS APPROPRIATELY, MAKES NEEDS KNOWN. A/0X4. RECENT LABS SHOW IMPROVED SODIUM LEVELS, LABS ARE PT BASELINE PER . TOLERATING INTAKE AND OUTPUT.
--- NOTE | 2025-01-08 15:21 | NUR ---
report recieved at 1512. this rn to take over in care.
--- NOTE | 2025-01-08 16:26 | NUR ---
DISCHARGE UPDATE DISCHARGE PACKET GONE OVER WITH PT AT 1600. PT DISCHARGED AT 1620 VIA WHEELCHAIR AND ON RA. PT ABLE TO DRESS SELF AND TRANSFER SELF TO AJND FROM WHEELCHAIR ON HIS OWN, TOLERATED WELL. DISCHARGE PACKET WITH PT AT TIME OF DISCHARGE. PT PERSONAL BELONGINGS IN BAD AND WITH PT FRIEND AT TIME OF DISCHARGE.
[2025-01-08] MEDS ORDERED: Melatonin 5 MG Tablet PO SCH (21:00)
[2025-01-08] MEDS ORDERED: Pravastatin Sodium 20 MG Tab PO SCH (21:00)
== END 2025-01-08 16:26 | disposition home or self-care (01) ==
LOC: ER 15:25 → PCU 15:26 → ER 18:57 → PCU 18:57 → ERHOLD 18:57 → PCU 20:57
PROVIDERS: Emergency Medicine; Nurse Practitioner Acute Care; ADMIT Internal Medicine
DX: E87.1 Hypo-osmolality and hyponatremia (principal); K74.60 Unspecified cirrhosis of liver; E87.5 Hyperkalemia; D72.829 Elevated white blood cell count, unspecified; E11.65 Type 2 diabetes mellitus with hyperglycemia; I95.9 Hypotension, unspecified; N40.0 Benign prostatic hyperplasia without lower urinary tract symptoms; E78.5 Hyperlipidemia, unspecified; I10 Essential (primary) hypertension; Z79.4 Long term (current) use of insulin
CPT/HCPCS: 36415; 49083; 80048; 80053; 81003; 82010; 82803; 82947; 83735; 83935; 85025; 85027; 85610; 93005; 93010; 94762; 99284-25; A9270; G0378; J1938; J1940; P9047

== ENCOUNTER 2025-01-16 16:42 | Inpatient (IN) | payer OTHER ==
[~2025-01-16] VITALS: Ht 177.8 cm; Wt 99.8 kg
[2025-01-16 17:27] LABS: BASOPHILS ABSOLUTE AUTO 0.07 K/mm3 (0.00-0.23); BASOPHILS PERCENT AUTO 0 % (0-2); EOSINOPHILS ABSOLUTE AUTO 0.03 K/mm3 (0.00-0.68); EOSINOPHILS PERCENT AUTO 0 % (0-6); Hematocrit 48.8 % (37.0-53.0); Hemoglobin 17.4 g/dL (13.5-17.5); IMMATURE GRAN ABSOLUTE AUTO 0.52 K/mm3 (0.00-0.10); IMMATURE GRAN PERCENT AUTO 3 % (0-1); LYMPHOCYTES ABSOLUTE AUTO 2.11 K/mm3 (0.84-5.20); LYMPHOCYTES PERCENT AUTO 12 % (21-46); MONOCYTES ABSOLUTE AUTO 1.63 K/mm3 (0.16-1.47); MONOCYTES PERCENT AUTO 9 % (4-13); Mean Corpuscular HGB 28.1 pg (26.0-34.0); Mean Corpuscular HGB Conc 35.7 g/dL (31.5-36.5); Mean Corpuscular Volume 79 fL (80-100); Mean Platelet Volume 8.4 fL (9.1-12.4); NEUTROPHILS ABSOLUTE AUTO 13.33 K/mm3 (1.96-9.15); NEUTROPHILS PERCENT AUTO 75 % (41-73); Platelet Count 409 K/mm3 (150-400); RDW Coefficient Variation 17.3 % (11.7-14.2); RDW Standard Deviation 46.1 fL (35.1-46.3); Red Blood Cell Count 6.19 M/mm3 (4.30-5.90); White Blood Cell Count 17.69 K/mm3 (4.00-11.30)
[2025-01-16] MEDS ORDERED: BASAGLAR K100 UNIT/3 SC (17:29)
[2025-01-16] MEDS ORDERED: FIASP 100100 UNIT/3 SC (17:30)
[2025-01-16] MEDS ORDERED: Lactated Ringer's 500 ML IV ONE (17:30)
[2025-01-16 17:48] LABS: Free Thyroxine 0.97 ng/dL (0.70-1.60)
[2025-01-16 17:53] LABS: Thyroid Stimulating Hormone 0.772 uIU/mL (0.360-4.800); Triiodothyronine, Free 1.97 pg/mL (2.18-3.98)
[2025-01-16 17:56] LABS: Albumin, Blood 2.8 g/dL (3.4-5.0); Albumin/Globulin Ratio 0.9 (0.8-1.8); Bilirubin, Total 0.7 mg/dL (0.1-1.0); Bun/Creatinine Ratio 50.4 (12.0-20.0); Calcium, Blood 7.9 mg/dL (8.5-10.1); Creatinine, Blood 1.29 mg/dL (0.60-1.20); Globulin, Blood 3.2 g/dL (2.2-4.0); Potassium, Blood 5.5 mmol/L (3.5-5.5)
[2025-01-16] MEDS ORDERED: NS 1,000 ML IV SCH (18:05)
[2025-01-16 19:47] LABS: Source, Urine Clean Catch
[2025-01-16 19:49] LABS: Appearance, Urine Clear (Clear); Bilirubin, Urine Neg (Neg); Blood, Urine Neg (Neg); Color, Urine Yellow (P-Yellow); Glucose Qualitative, Urine 4+ (Neg); Ketones, Urine Neg (Neg); Leukocyte Esterase, Urine Neg (Neg); Nitrite, Urine Neg (Neg); Protein, Urine Neg (Neg); Urobilinogen, Urine NORM (Normal)
[2025-01-16] MEDS ORDERED: NS 250 ML IV PRN (22:00)
[2025-01-16] MEDS ORDERED: Azithromycin 500 MG in NS 250 ML IV SCH (22:00)
[2025-01-16] MEDS ORDERED: CefTRIAXone Sodium 1,000 MG in NS 100 ML IV SCH (22:00)
[2025-01-16 22:52] VITALS: BP 96/67
[2025-01-16] MEDS ORDERED: Aldactone50 MG PO (23:13)
[2025-01-16] MEDS ORDERED: Insulin Glargine-Yfgn 100 Unit/mL 3 ML SYR SC SCH (23:46)
[2025-01-17 04:27] VITALS: BP 91/61
--- NOTE | 2025-01-17 04:44 | NUR ---
SHIFT SUMMARY REPORT PATIENT IS ALERTAND ORIENTED X 4, SHE COMPLAINED OF PERSISTANT HEADACE ,TAB TYLNOL WAS GIVEN , SHE SLEPT WELL,AWAKEN THIS MORNING WITH SAME COMPLAINT.ALL HER DUE MEDICATION WERE SERVED, NURSING CRE RENDERED ,CALL LIGHT ANSWERED PROMPTLY AND SET WITHIN REACH OF THE PATIENT.
[2025-01-17 04:51] LABS: BASOPHILS ABSOLUTE AUTO 0.07 K/mm3 (0.00-0.23); BASOPHILS PERCENT AUTO 0 % (0-2); EOSINOPHILS ABSOLUTE AUTO 0.07 K/mm3 (0.00-0.68); EOSINOPHILS PERCENT AUTO 0 % (0-6); Hematocrit 45.1 % (37.0-53.0); Hemoglobin 16.1 g/dL (13.5-17.5); IMMATURE GRAN ABSOLUTE AUTO 0.48 K/mm3 (0.00-0.10); IMMATURE GRAN PERCENT AUTO 3 % (0-1); LYMPHOCYTES ABSOLUTE AUTO 2.46 K/mm3 (0.84-5.20); LYMPHOCYTES PERCENT AUTO 15 % (21-46); MONOCYTES ABSOLUTE AUTO 1.86 K/mm3 (0.16-1.47); MONOCYTES PERCENT AUTO 11 % (4-13); Mean Corpuscular HGB 28.1 pg (26.0-34.0); Mean Corpuscular HGB Conc 35.7 g/dL (31.5-36.5); Mean Corpuscular Volume 79 fL (80-100); Mean Platelet Volume 8.7 fL (9.1-12.4); NEUTROPHILS ABSOLUTE AUTO 12.08 K/mm3 (1.96-9.15); NEUTROPHILS PERCENT AUTO 71 % (41-73); Platelet Count 360 K/mm3 (150-400); RDW Coefficient Variation 16.6 % (11.7-14.2); RDW Standard Deviation 45.9 fL (35.1-46.3); Red Blood Cell Count 5.73 M/mm3 (4.30-5.90); White Blood Cell Count 17.02 K/mm3 (4.00-11.30)
--- NOTE | 2025-01-17 04:56 | NUR ---
SHIFT SUMMARY REPORT PATIENT WAS ADIMMITED ON OUR SHIFT, A KNOWN DIABETIC, WITH HYPONATREMIA,ALERT ORIENTED X 4,BROUGHT ON WHEEL CHAIR ,HAD AN EPISODE OF SYNCOPE,WITH DIZZYNESS, ABDOMINAL PARENTHESIS DONE 13.5 LITERS OF FLUID DRAINED A RESULT OF ASCITES SECONDARY TO (CIRRHOSIS OF LIVER). NON ALCOHOLIC ONE PERSON ASSIST, RECEIVED HIS DUE MEDICATIONS, FULL CODE , FEELS DIZZY WHEN GETTING UP, HYPOTENSIVE,ALSO BED SIDE COMMODE . PATIENT INSTRUCTED, AND OREIENT IN HIS ROOM CALL LIGHT BROUGHT WITHIN REACH OF THE PATIENT.
[2025-01-17 05:38] LABS: Albumin, Blood 2.3 g/dL (3.4-5.0); Albumin/Globulin Ratio 0.8 (0.8-1.8); Bilirubin, Total 0.5 mg/dL (0.1-1.0); Bun/Creatinine Ratio 57.7 (12.0-20.0); Calcium, Blood 7.9 mg/dL (8.5-10.1); Creatinine, Blood 1.11 mg/dL (0.60-1.20); Globulin, Blood 2.8 g/dL (2.2-4.0); Potassium, Blood 5.1 mmol/L (3.5-5.5); Total Protein, Blood 5.1 g/dL (6.4-8.2)
[2025-01-17] MEDS ORDERED: Pantoprazole Sodium 40 MG Tab PO SCH (06:00)
[2025-01-17 07:20] VITALS: BP 93/66
[2025-01-17] MEDS ORDERED: Carvedilol 3.125 MG Tab PO SCH (08:00)
[2025-01-17] MEDS ORDERED: Docosahexanoic Acid/EPA 1,000 MG CAP PO SCH (09:00)
[2025-01-17] MEDS ORDERED: Trimethoprim/Sulfamethoxazole DS Tab PO SCH (09:00)
[2025-01-17] MEDS ORDERED: Docusate Sodium 100 MG Cap PO SCH (09:00)
[2025-01-17] MEDS ORDERED: Furosemide 40 MG Tab PO SCH (09:00)
[2025-01-17] MEDS ORDERED: Polyethylene Glycol 3350 17 gm PO SCH (09:00)
[2025-01-17] MEDS ORDERED: Empagliflozin 25 MG TAB PO SCH (09:00)
[2025-01-17] MEDS ORDERED: Midodrine 5 MG Tab PO SCH ×2 (09:00)
[2025-01-17] MEDS ORDERED: Spironolactone 50 MG Tab PO SCH (09:00)
[2025-01-17] MEDS ORDERED: Enoxaparin 40 MG/0.4 ML SYR SC SCH (09:00)
[2025-01-17] MEDS ORDERED: Magnesium Oxide 400 MG Tab PO SCH (09:00)
[2025-01-17] MEDS ORDERED: Tamsulosin HCl 0.4 MG Cap PO SCH (09:00)
[2025-01-17 09:31] LABS: Bun/Creatinine Ratio 60.2 (12.0-20.0); Creatinine, Blood 1.08 mg/dL (0.60-1.20); Potassium, Blood 5.3 mmol/L (3.5-5.5)
[2025-01-17 10:14] VITALS: BP 100/73
[2025-01-17 14:11] VITALS: BP 98/59
[2025-01-17] MEDS ORDERED: Albumin (Human) 25gm/100ml 100 ML IV ONE (15:05)
[2025-01-17 17:51] VITALS: BP 93/67
[2025-01-17] MEDS ORDERED: Furosemide 10 MG/ML 10ML Vial IV SCH (18:00)
--- NOTE | 2025-01-17 18:16 | NUR ---
SHIFT SUMMARY- PT HAS HAD NO ACUTE CHANGE T/O THE SHIFT. HE IS ALERT AND ORIENTED 1PA WITH AMBULATION. DR WILBURN CAME TO SEE THE PT TODAY AND CHANGED THE LASIX TO IV WITH HOLD PARAMETERS. SODIUM IS STILL CRITICALLY LOW. PT RECIEVED A OT DOSE OF ALBUMIN. PT IS CURRENTLY SITTING UP IN BED AND HE IS ASKING FR STAFF TO HELP HIM GO FOR A WALK. WILL ATTEMPT TO WALK WITH PT IF TIME ALLOWS. WILL PASS ON TO NIGHT RN IN BEDSIDE REPORT.
[2025-01-17 19:12] VITALS: BP 90/71
[2025-01-17] MEDS ORDERED: Melatonin 5 MG Tablet PO SCH (21:00)
[2025-01-18 03:09] VITALS: BP 124/104
--- NOTE | 2025-01-18 04:00 | NUR ---
SHIFT SUMMARY PATIENT HAD NO ACUTE CHANGES. ALERT ORIENTED AND SBA TO BR. ON ROOM AIR. DENIES CHEST PAIN, SOB, AND N/V. VSS/AFEBRILE. SOFT BP'S. PIVS INTACT. IV ABXS INFUSED. CBG 227. CALL LIGHT IN REACH. BED IN LOWEST POSITION. WILL CONTINUE TO MONITOR UNTIL DAY SHIFT NURSE ASSUMES CARE.
[2025-01-18 06:07] LABS: BASOPHILS ABSOLUTE AUTO 0.08 K/mm3 (0.00-0.23); BASOPHILS PERCENT AUTO 1 % (0-2); EOSINOPHILS ABSOLUTE AUTO 0.19 K/mm3 (0.00-0.68); EOSINOPHILS PERCENT AUTO 2 % (0-6); Hematocrit 43.3 % (37.0-53.0); Hemoglobin 15.1 g/dL (13.5-17.5); IMMATURE GRAN ABSOLUTE AUTO 0.24 K/mm3 (0.00-0.10); IMMATURE GRAN PERCENT AUTO 2 % (0-1); LYMPHOCYTES ABSOLUTE AUTO 2.35 K/mm3 (0.84-5.20); LYMPHOCYTES PERCENT AUTO 19 % (21-46); MONOCYTES ABSOLUTE AUTO 1.49 K/mm3 (0.16-1.47); MONOCYTES PERCENT AUTO 12 % (4-13); Mean Corpuscular HGB 27.4 pg (26.0-34.0); Mean Corpuscular HGB Conc 34.9 g/dL (31.5-36.5); Mean Corpuscular Volume 79 fL (80-100); Mean Platelet Volume 8.5 fL (9.1-12.4); NEUTROPHILS ABSOLUTE AUTO 7.84 K/mm3 (1.96-9.15); NEUTROPHILS PERCENT AUTO 64 % (41-73); Platelet Count 357 K/mm3 (150-400); RDW Coefficient Variation 16.5 % (11.7-14.2); RDW Standard Deviation 46.8 fL (35.1-46.3); Red Blood Cell Count 5.51 M/mm3 (4.30-5.90); White Blood Cell Count 12.19 K/mm3 (4.00-11.30)
[2025-01-18 06:37] LABS: Albumin, Blood 2.8 g/dL (3.4-5.0); Anion Gap 12 mmol/L (3-11); Blood Urea Nitrogen 58 mg/dL (8-24); Bun/Creatinine Ratio 46.4 (12.0-20.0); CO2, Blood 23 mmol/L (21-32); Chloride, Blood 91 mmol/L (98-108); Creatinine, Blood 1.25 mg/dL (0.60-1.20); Glomerular Filtration Rate 62 (60-); Glucose, Blood 79 mg/dL (70-99); Phosphorus, Blood 4.1 mg/dL (2.5-4.9); Potassium, Blood 5.5 mmol/L (3.5-5.5); Sodium, Blood 120 mmol/L (136-145)
[2025-01-18 07:36] VITALS: BP 101/70
[2025-01-18] MEDS ORDERED: Docusate Sodium 100 MG Cap PO ONE (11:15)
[2025-01-18 12:33] VITALS: BP 95/67
[2025-01-18 17:00] VITALS: BP 96/64
--- NOTE | 2025-01-18 17:55 | NUR ---
SHIFT SUMMARY PT A&OX4, AMB W/ SBA, TOLERATING PO, VOIDING, AND DENIED PAIN. PT HYPOTENSIVE THIS AFTERNOON, BUT WAS ASYMPTOMATIC. HYPOTENSION MEDICATED PER EMAR. NO OTHER ACUTE CHANGES. CALL LIGHT WITHIN REACH AND PT ABLE TO MAKE NEEDS KNOWN.
[2025-01-18 19:47] VITALS: BP 99/64
[2025-01-19 01:57] VITALS: BP 96/64
--- NOTE | 2025-01-19 04:33 | NUR ---
SUMMARY: PT A/OX4, CALLS APPROPRIATELY TO SPECIFY NEEDS AND IS PLEASANT AND COOPERATIVE W/CARE. HE'S INDEPENDENT/SBA AND AWARE OF LIMITATIONS. 1200ML FR MAINTAINED AND PT USES URINAL AD SIDDHARTH. ABDO IS DISTENDED BUT SOFT/NONTENDER. HYPOTENSION PERSISTS W/BP 90'S/60'S BUT HE'S ASYMPTOMATIC AND SCHEDULED MIDODRINE WAS RECEIVED PER EMAR. IV ABX PROVIDED FOR PNM THEN SL'D. NO ACUTE CHANGES, VSS/AFEBRILE. WILL REPORT TO DAY RN.
[2025-01-19 05:41] LABS: BASOPHILS PERCENT AUTO 1 % (0-2); EOSINOPHILS ABSOLUTE AUTO 0.17 K/mm3 (0.00-0.68); EOSINOPHILS PERCENT AUTO 2 % (0-6); Hematocrit 45.7 % (37.0-53.0); Hemoglobin 16.1 g/dL (13.5-17.5); IMMATURE GRAN ABSOLUTE AUTO 0.23 K/mm3 (0.00-0.10); IMMATURE GRAN PERCENT AUTO 2 % (0-1); LYMPHOCYTES ABSOLUTE AUTO 2.19 K/mm3 (0.84-5.20); LYMPHOCYTES PERCENT AUTO 21 % (21-46); MONOCYTES ABSOLUTE AUTO 1.54 K/mm3 (0.16-1.47); MONOCYTES PERCENT AUTO 15 % (4-13); Mean Corpuscular HGB 28.2 pg (26.0-34.0); Mean Corpuscular HGB Conc 35.2 g/dL (31.5-36.5); Mean Corpuscular Volume 80 fL (80-100); Mean Platelet Volume 8.2 fL (9.1-12.4); NEUTROPHILS PERCENT AUTO 59 % (41-73); Platelet Count 314 K/mm3 (150-400); RDW Standard Deviation 48.2 fL (35.1-46.3); Red Blood Cell Count 5.71 M/mm3 (4.30-5.90); White Blood Cell Count 10.43 K/mm3 (4.00-11.30)
[2025-01-19 06:03] LABS: Albumin, Blood 2.5 g/dL (3.4-5.0); Anion Gap 11 mmol/L (3-11); Blood Urea Nitrogen 48 mg/dL (8-24); Bun/Creatinine Ratio 45.3 (12.0-20.0); CO2, Blood 21 mmol/L (21-32); Calcium, Blood 8.2 mg/dL (8.5-10.1); Chloride, Blood 93 mmol/L (98-108); Creatinine, Blood 1.06 mg/dL (0.60-1.20); Glomerular Filtration Rate 76 (60-); Glucose, Blood 84 mg/dL (70-99); Phosphorus, Blood 3.9 mg/dL (2.5-4.9); Potassium, Blood 5.7 mmol/L (3.5-5.5); Sodium, Blood 119 mmol/L (136-145)
--- NOTE | 2025-01-19 06:46 | NUR ---
CRITICAL SODIUM 119 THIS AM: MADE AWARE W/NEW ORDER RECEIVED TO RECHECK NA LEVEL AT 1000 AND HE PLANS TO RELAY RESULT TO [facility] WALLACE.
[2025-01-19 07:13] VITALS: BP 95/65
[2025-01-19] MEDS ORDERED: Docusate Sodium 100 MG Cap PO SCH (09:00)
[2025-01-19] MEDS ORDERED: CEFU500T30 PO (13:01)
[2025-01-19 13:03] VITALS: BP 91/59
--- NOTE | 2025-01-19 14:27 | NUR ---
DISCHARGE NOTE PT D/C HOME AT 1330. PT PROVIDED W/ VERBAL AND WRITTEN INSTRUCTIONS BY STUDENT RN GÓMEZ W/ SUPERVISION OF THIS RN. PT REPORTED UNDERSTANDING. PT A&OX4, AMB W/ SBA, TOLERATING PO, VOIDING, AND DENIED PAIN. PT HYPOTENSIVE, BUT ASYMPTOMATIC AND MEDICATED PER EMAR. THIS RN NOTIFIED OF PT'S NA AND K. BELONGINGS WERE RETURNED AND PT ESCOURTED OUT VIA W/C BY LIVING MANAGER AT 1405. WENT TO ROUND ON PT AFTER PT HAD BEEN D/C. THIS RN SPOKE W/ PROVIDER ABOUT PT'S LABS. PROVIDER'S OFFICE TO CONTACT PT.
== END 2025-01-19 14:08 | disposition home or self-care (01) | DRG 641 ==
LOC: ER 16:42 → MEDS 16:43
PROVIDERS: Hospitalist; Internal Medicine; Student in an Organized Health Care Education/Training Program; ADMIT Internal Medicine
DX: E87.1 Hypo-osmolality and hyponatremia (principal); J98.11 Atelectasis; K76.6 Portal hypertension; R18.8 Other ascites; N17.9 Acute kidney failure, unspecified; I95.81 Postprocedural hypotension; E87.5 Hyperkalemia; E87.79 Other fluid overload; K74.69 Other cirrhosis of liver; K75.81 Nonalcoholic steatohepatitis (NASH); E11.9 Type 2 diabetes mellitus without complications; E78.5 Hyperlipidemia, unspecified; I10 Essential (primary) hypertension; D72.829 Elevated white blood cell count, unspecified; N40.0 Benign prostatic hyperplasia without lower urinary tract symptoms; Z79.84 Long term (current) use of oral hypoglycemic drugs; Z79.4 Long term (current) use of insulin; Z79.2 Long term (current) use of antibiotics
CPT/HCPCS: 36415; 71045; 80048; 80053; 80069; 81003; 82947; 83605; 84145; 84295; 84439; 84443; 84481; 84484; 85025; 93005; 93010; 96365; 96368; 96372; 99285-25; A9270; G0378; J0456; J0696; J1650; J1815; J7050; P9047

== ENCOUNTER 2025-01-29 03:42 | Inpatient (IN) | payer OTHER ==
[2025-01-29] VITALS (10 sets, daily range): BP systolic 79–95; BP diastolic 60–71
[~2025-01-29] VITALS: Ht 177.8 cm; Wt 88.4 kg
[~2025-01-29 03:42] MED LIST changes: +Aldactone50 MG PO; +BASAGLAR K100 UNIT/3 SC; +CEFU500T30 PO; +FIASP 100100 UNIT/3 SC
[2025-01-29] MEDS ORDERED: Diltiazem HCl 5 MG / ML 5ML Vial IV ONE ×2 (03:55→04:20)
[2025-01-29 04:03] LABS: BASOPHILS ABSOLUTE AUTO 0.08 K/mm3 (0.00-0.23); BASOPHILS PERCENT AUTO 1 % (0-2); EOSINOPHILS ABSOLUTE AUTO 0.14 K/mm3 (0.00-0.68); EOSINOPHILS PERCENT AUTO 1 % (0-6); Hematocrit 42.5 % (37.0-53.0); Hemoglobin 14.8 g/dL (13.5-17.5); IMMATURE GRAN ABSOLUTE AUTO 0.24 K/mm3 (0.00-0.10); IMMATURE GRAN PERCENT AUTO 2 % (0-1); LYMPHOCYTES ABSOLUTE AUTO 2.14 K/mm3 (0.84-5.20); LYMPHOCYTES PERCENT AUTO 16 % (21-46); MONOCYTES PERCENT AUTO 13 % (4-13); Mean Corpuscular HGB 28.1 pg (26.0-34.0); Mean Corpuscular HGB Conc 34.8 g/dL (31.5-36.5); Mean Corpuscular Volume 81 fL (80-100); Mean Platelet Volume 8.6 fL (9.1-12.4); NEUTROPHILS ABSOLUTE AUTO 9.26 K/mm3 (1.96-9.15); NEUTROPHILS PERCENT AUTO 68 % (41-73); Platelet Count 361 K/mm3 (150-400); RDW Coefficient Variation 16.5 % (11.7-14.2); RDW Standard Deviation 48.2 fL (35.1-46.3); Red Blood Cell Count 5.26 M/mm3 (4.30-5.90); White Blood Cell Count 13.56 K/mm3 (4.00-11.30)
[2025-01-29] MEDS ORDERED: Midodrine 5 MG Tab PO ONE (04:20)
[2025-01-29 04:22] LABS: Source, Urine Clean Catch
[2025-01-29 04:24] LABS: Magnesium, Blood 2.4 mg/dL (1.6-2.4)
[2025-01-29 04:27] LABS: Albumin, Blood 2.2 g/dL (3.4-5.0); Albumin/Globulin Ratio 0.8 (0.8-1.8); Bilirubin, Total 0.3 mg/dL (0.1-1.0); Bun/Creatinine Ratio 62.7 (12.0-20.0); Calcium, Blood 7.7 mg/dL (8.5-10.1); Creatinine, Blood 1.18 mg/dL (0.60-1.20); Globulin, Blood 2.7 g/dL (2.2-4.0); Phosphorus, Blood 4.4 mg/dL (2.5-4.9); Potassium, Blood 5.1 mmol/L (3.5-5.5); Total Protein, Blood 4.9 g/dL (6.4-8.2)
[2025-01-29 04:40] LABS: Bilirubin, Urine Neg (Neg); Blood, Urine Neg (Neg); Glucose Qualitative, Urine 4+ (Neg); Ketones, Urine Neg (Neg); Leukocyte Esterase, Urine Neg (Neg); Nitrite, Urine Neg (Neg); Protein, Urine Neg (Neg); Specific Gravity, Urine 1.015 (1.003-1.022); Urobilinogen, Urine NORM (Normal)
[2025-01-29 04:45] LABS: Appearance, Urine Clear (Clear); Color, Urine Pale Yellow (P-Yellow)
[2025-01-29] MEDS ORDERED: Acetaminophen 325 MG TABLET PO PRN (06:05)
[2025-01-29] MEDS ORDERED: Ondansetron HCl 2 MG / ML 2ML Vial IV PRN (06:05)
[2025-01-29] MEDS ORDERED: Melatonin 5 MG Tablet PO PRN (06:10)
--- NOTE | 2025-01-29 07:09 | NUR ---
report recieved from ER nurse at 0704.
[2025-01-29] MEDS ORDERED: Insulin Human Lispro 100 Units/ML 3ML Syringe SC SCH (07:30)
[2025-01-29] MEDS ORDERED: SPIR25 PO (07:42)
[2025-01-29] MEDS ORDERED: FURO80 PO (07:43)
[2025-01-29] MEDS ORDERED: PRAV20 PO (07:46)
[2025-01-29] MEDS ORDERED: Carvedilol 3.125 MG Tab PO SCH ×3 (08:00→17:00)
[2025-01-29] MEDS ORDERED: Empagliflozin 25 MG TAB PO SCH (09:00)
[2025-01-29] MEDS ORDERED: Docusate Sodium 100 MG Cap PO SCH (09:00)
[2025-01-29] MEDS ORDERED: Tamsulosin HCl 0.4 MG Cap PO SCH (09:00)
[2025-01-29] MEDS ORDERED: Insulin Glargine-Yfgn 100 Unit/mL 3 ML SYR SC SCH (09:00)
[2025-01-29] MEDS ORDERED: Midodrine 5 MG Tab PO SCH (09:00)
--- NOTE | 2025-01-29 09:29 | NUR ---
UPDATE PT CONVERTED TO SINUS RHYTHM AT 0904. VS TAKEN, BP REMAINS SOFT, SEE CHART. MD NOTIFIED OF CONVERSION.
[2025-01-29] MEDS ORDERED: CefTRIAXone Sodium 1,000 MG in NS 100 ML IV SCH (10:00)
[2025-01-29] MEDS ORDERED: Furosemide 10 MG/ML 4ML Vial IV SCH ×2 (12:00→18:00)
--- NOTE | 2025-01-29 15:01 | NUR ---
0723 LATE ENTRY PT ARRIVED TO PCU AT 0723 VIA GURNEY AND ON RA. PT ABLE TO TRANSFER FROM GURNEY TO BED ON HIS OWN, TOLERATED FAIR. PT IN AFIB WITH CONTROLED RATE 90-100'S. PT DENIES CHEST PAIN/PRESSURE. PT BP'S SOFT, SEE CHART, PT ASYMPTOMATIC. PT A/OX4 AND CCOPERATIVE. PT NOTED THAT HE WAS SCHEDULED FOR A PARACENTESIS TODAY, PT RECIEVES THEM WEEKLY, AWARE.
--- NOTE | 2025-01-29 15:50 | NUR ---
PT RETURNED TO PCU ROOM AFTER PARACENTESIS. 11L REMOVED PER REPORT. PT REPORTS THAT BREATHING FEELS EASIER AND THAT HE IS MORE COMFORTABLE NOW. PHARMACY NOTIFIED OF AMOUNT OF FLUID REMOVED, ALBUMIN TO BE GIVEN PER PROTOCOL.
[2025-01-29] MEDS ORDERED: NS 250 ML IV PRN (16:00)
[2025-01-29] MEDS ORDERED: Albumin (Human) 25gm/100ml 100 ML IV SCH (16:00)
--- NOTE | 2025-01-29 18:43 | NUR ---
SHIFT SUMMARY PT IS A&0 X 4, ABLE TO EXPRESS NEEDS, COOPERATIVE WITH CARE. BPs HAVE BEEN CONSISTENTLY SOFT (SEE CHART), PT BEING TREATED PER EMAR. HR SWITCHED FROM A FIB TO SINUS RHYTHM THIS AM AND HAS SINCE CONTINUED TO STAY IN SINUS RHYTHM. O2 SATS IN 90s ON RM AIR. PARACENTESIS RECIEVED BY PT THIS AFTERNOON REMOVED 11 LITERS OF FLUID AND VASTLY IMPROVED PT's ABD DISTENTION. ALBUMIN CURRENTLY RUNNING PER EMAR.
--- NOTE | 2025-01-29 19:19 | NUR ---
STUDENT RN CHART REVIEW THIS RN OVERSAW, REVIEWED AND AGREES WITH STUDENT RN'S ASSESSMENTS AND CHARTING.
[2025-01-30 04:16] LABS: BASOPHILS ABSOLUTE AUTO 0.07 K/mm3 (0.00-0.23); BASOPHILS PERCENT AUTO 1 % (0-2); EOSINOPHILS ABSOLUTE AUTO 0.22 K/mm3 (0.00-0.68); EOSINOPHILS PERCENT AUTO 2 % (0-6); Hematocrit 42.3 % (37.0-53.0); Hemoglobin 14.7 g/dL (13.5-17.5); IMMATURE GRAN ABSOLUTE AUTO 0.14 K/mm3 (0.00-0.10); IMMATURE GRAN PERCENT AUTO 1 % (0-1); LYMPHOCYTES ABSOLUTE AUTO 2.02 K/mm3 (0.84-5.20); LYMPHOCYTES PERCENT AUTO 19 % (21-46); MONOCYTES ABSOLUTE AUTO 1.33 K/mm3 (0.16-1.47); MONOCYTES PERCENT AUTO 13 % (4-13); Mean Corpuscular HGB 27.9 pg (26.0-34.0); Mean Corpuscular HGB Conc 34.8 g/dL (31.5-36.5); Mean Corpuscular Volume 80 fL (80-100); Mean Platelet Volume 8.6 fL (9.1-12.4); NEUTROPHILS ABSOLUTE AUTO 6.65 K/mm3 (1.96-9.15); NEUTROPHILS PERCENT AUTO 64 % (41-73); Platelet Count 326 K/mm3 (150-400); RDW Coefficient Variation 16.4 % (11.7-14.2); Red Blood Cell Count 5.26 M/mm3 (4.30-5.90); White Blood Cell Count 10.43 K/mm3 (4.00-11.30)
[2025-01-30 04:29] VITALS: BP 99/64
[2025-01-30 04:44] LABS: Bun/Creatinine Ratio 57.1 (12.0-20.0); Calcium, Blood 8.3 mg/dL (8.5-10.1); Creatinine, Blood 1.05 mg/dL (0.60-1.20); Potassium, Blood 4.6 mmol/L (3.5-5.5)
[2025-01-30] MEDS ORDERED: Pantoprazole Sodium 40 MG Tab PO SCH (06:00)
--- NOTE | 2025-01-30 06:00 | NUR ---
SHIFT SUMMARY AOX4. VSS. TELE NSR HR 70. DENIES DYSPNEA, SPO2 98% ON RA. DENIES N/V. REPORTS BILAT LEG CRAMPS, MEDICATED W/TYLENOL & PT ABLE TO REST COMFORTABLY AFTER. NO FURTHER REPORTS OF DISCOMFORT. SBY ASSIST TO RESTROOM. CALL LIGHT IN REACH & PT ABLE TO MAKE NEEDS KNOWN.
[2025-01-30 07:17] VITALS: BP 97/64
[2025-01-30 08:54] VITALS: BP 100/65
[2025-01-30] MEDS ORDERED: Trimethoprim/Sulfamethoxazole DS Tab PO SCH (09:00)
[2025-01-30] MEDS ORDERED: Apixaban 5 MG Tab PO SCH (10:00)
[2025-01-30 11:26] VITALS: BP 90/61
[2025-01-30] MEDS ORDERED: Furosemide 10 MG/ML 4ML Vial IV SCH (13:00)
[2025-01-30 16:37] VITALS: BP 97/59
[2025-01-30] MEDS ORDERED: Polyethylene Glycol 3350 17 gm PO ONE (17:00)
[2025-01-30] MEDS ORDERED: Polyethylene Glycol 3350 17 gm PO PRN (17:00)
--- NOTE | 2025-01-30 17:14 | NUR ---
SHIFT SUMMARY PT A/OX4 AND COOPERATIVE OF CARE. PT ABLE TO EXPRESS NEEDS AND CALLED APPROPIATE. PT INDEPENDENT IN ROOM, TOLERATED WELL. PT BP'S RAMINED SOFT WITH STABLE MAPS, AWARE. PT HR REMAINED SR THSI SHIFT, NO REPORT OF CHEST PAIN/PRESSURE. OTHER VSS THROUGHOUT SHIFT WITH O2 SATS IN THE 90'S ON RA. PT CONTINUES TO REPORT THAT HIS BREATHING IS MUCH BETTER EVER SINCE PARACENTESIS YESTERDAY. PT DENIED SOB/DYSPNEA DURING SHIFT. PT WAS EAGER TO GO HOME TODAY, HAD DISCUSSSIONG WITH PT, PT AGREEBLE TO STAY.
[2025-01-30 20:41] VITALS: BP 89/56
--- NOTE | 2025-01-31 03:56 | NUR ---
SHIFT SUMMARY: PT IS PLEASANT AND COOPERATIVE WITH CARES, ALERT AND ORIENTED ABLE TO MAKE NEEDS KOWN, PT IS INDEPENDANT IN ROOM AND HAS GREAT BALANCE, VS- BP SOFT WITH MAP GOAL ABOVE 65 MET, PT STATES AGUILAR TTHIS IS NORMAL AND HE IS ASYMPTOMATIC AT THIS TIME, ALL OTHER VS WNL, PT CAN USE CALL LIGHT APPROPRIATELY, PERSONEL ITEMS WITH IN REACH AT THIS TIME
[2025-01-31 04:27] LABS: Bun/Creatinine Ratio 51.3 (12.0-20.0); Creatinine, Blood 1.19 mg/dL (0.60-1.20); Potassium, Blood 4.7 mmol/L (3.5-5.5)
[2025-01-31 07:30] VITALS: BP 91/64
[2025-01-31] MEDS ORDERED: Spironolactone 50 MG Tab PO SCH (09:00)
[2025-01-31 11:46] VITALS: BP 95/65
[2025-01-31] MEDS ORDERED: SULTRIDS PO (12:00)
--- NOTE | 2025-01-31 13:17 | NUR ---
DISCHARGE REVIEWED WITH PT . HE VERBALIZED UNDERSTANDING MEDS AND INST. FAMILY IN TO TAKE HOME. IV X2 PULLED INTACT. TELE REMOVED AND RETURNED. PT WHEELED TO DOOR BY AIDE AT 2134
== END 2025-01-31 14:00 | disposition home or self-care (01) | DRG 433 ==
LOC: ER 03:42 → ERHOLD 03:43 → PCU 03:43
PROVIDERS: Emergency Medicine; ADMIT Student in an Organized Health Care Education/Training Program
PROC: 0W9G3ZZ Drainage of Peritoneal Cavity, Percutaneous Approach (ICD-10-PCS; principal; 2025-01-29)
DX: K74.69 Other cirrhosis of liver (principal); E87.1 Hypo-osmolality and hyponatremia; R18.8 Other ascites; I85.10 Secondary esophageal varices without bleeding; K75.81 Nonalcoholic steatohepatitis (NASH); I48.0 Paroxysmal atrial fibrillation; E78.5 Hyperlipidemia, unspecified; E11.9 Type 2 diabetes mellitus without complications; I10 Essential (primary) hypertension; Z96.642 Presence of left artificial hip joint; N40.0 Benign prostatic hyperplasia without lower urinary tract symptoms; G47.33 Obstructive sleep apnea (adult) (pediatric); E66.01 Morbid (severe) obesity due to excess calories; Z87.19 Personal history of other diseases of the digestive system; Z98.890 Other specified postprocedural states; Z79.899 Other long term (current) drug therapy; Z79.85 Long-term (current) use of injectable non-insulin antidiabetic drugs; Z79.4 Long term (current) use of insulin; Z68.31 Body mass index [BMI] 31.0-31.9, adult
CPT/HCPCS: 36415; 49083; 71045; 80048; 80053; 81003; 82947; 83735; 84100; 84484; 85025; 93005; 93010; 93306; 94762; 96374; 96376; 99285-25; A9270; G0378; J0696; J1815; J1938; J7050; P9047

== ENCOUNTER 2025-03-19 16:35 | Inpatient (IN) | payer OTHER ==
[~2025-03-19] VITALS: Ht 172.7 cm; Wt 86.5 kg
[~2025-03-19 16:35] MED LIST changes: +FURO80 PO; +SPIR25 PO
[2025-03-19 17:17] LABS: BASOPHILS ABSOLUTE AUTO 0.02 K/mm3 (0.00-0.23); BASOPHILS PERCENT AUTO 0 % (0-2); EOSINOPHILS ABSOLUTE AUTO 0.11 K/mm3 (0.00-0.68); EOSINOPHILS PERCENT AUTO 1 % (0-6); Hematocrit 35.2 % (37.0-53.0); Hemoglobin 12.7 g/dL (13.5-17.5); IMMATURE GRAN ABSOLUTE AUTO 0.09 K/mm3 (0.00-0.10); IMMATURE GRAN PERCENT AUTO 1 % (0-1); LYMPHOCYTES ABSOLUTE AUTO 0.98 K/mm3 (0.84-5.20); LYMPHOCYTES PERCENT AUTO 8 % (21-46); MONOCYTES ABSOLUTE AUTO 1.32 K/mm3 (0.16-1.47); MONOCYTES PERCENT AUTO 10 % (4-13); Mean Corpuscular HGB Conc 36.1 g/dL (31.5-36.5); Mean Corpuscular Volume 83 fL (80-100); NEUTROPHILS ABSOLUTE AUTO 10.27 K/mm3 (1.96-9.15); NEUTROPHILS PERCENT AUTO 80 % (41-73); NRBC ABSOLUTE 0.00 K/mm3 (0.00-0.02); NRBC Auto 0.0 /100 WBC (0.0-0.2); Platelet Count 319 K/mm3 (150-400); RDW Coefficient Variation 15.6 % (11.7-14.2); RDW Standard Deviation 47.1 fL (35.1-46.3)
[2025-03-19 17:34] LABS: Alanine Aminotransfer (ALT/SGP 52.0 U/L (12-78); Albumin, Blood 2.5 g/dL (3.4-5.0); Albumin/Globulin Ratio 0.8 (0.8-1.8); Anion Gap 14.0 mmol/L (3-11); Aspartate Aminotrans (AST/SGOT 59.0 U/L (12-37); Bilirubin, Total 0.9 mg/dL (0.1-1.0); Blood Urea Nitrogen 121.0 mg/dL (8-24); CO2, Blood 24.0 mmol/L (21-32); Calcium, Blood 8.4 mg/dL (8.5-10.1); Chloride, Blood 93.0 mmol/L (98-108); Creatinine, Blood 1.84 mg/dL (0.60-1.20); Globulin, Blood 3.1 g/dL (2.2-4.0); Glucose, Blood 183.0 mg/dL (70-99); Potassium, Blood 3.6 mmol/L (3.5-5.5); Prothrombin Time Results 13.7 Sec (9.7-11.5); Sodium, Blood 127.0 mmol/L (136-145); Total Protein, Blood 5.6 g/dL (6.4-8.2)
[2025-03-19 19:01] LABS: Source, Urine Clean Catch
[2025-03-19 19:04] LABS: Bilirubin, Urine Neg (Neg); Color, Urine Yellow (P-Yellow); Glucose Qualitative, Urine Neg (Neg); Ketones, Urine Neg (Neg); Leukocyte Esterase, Urine Neg (Neg); Protein, Urine 1+ (Neg); Specific Gravity, Urine 1.010 (1.003-1.022); Urobilinogen, Urine NORM (Normal)
[2025-03-19] MEDS ORDERED: DiphenhydrAMINE HCL/Zinc Acet Cream TOP PRN (20:50)
[2025-03-19] MEDS ORDERED: Insulin Glargine-Yfgn 100 Unit/mL 3 ML SYR SC SCH (21:00)
[2025-03-19] MEDS ORDERED: CefTRIAXone Sodium 2,000 MG in NS 100 ML IV SCH (21:30)
[2025-03-19 22:19] VITALS: BP 108/77
[2025-03-20 00:09] VITALS: BP 99/74
[2025-03-20 04:18] VITALS: BP 98/68
[2025-03-20 05:30] LABS: BASOPHILS ABSOLUTE AUTO 0.04 K/mm3 (0.00-0.23); BASOPHILS PERCENT AUTO 0 % (0-2); EOSINOPHILS ABSOLUTE AUTO 0.30 K/mm3 (0.00-0.68); EOSINOPHILS PERCENT AUTO 3 % (0-6); Hematocrit 35.9 % (37.0-53.0); Hemoglobin 12.6 g/dL (13.5-17.5); IMMATURE GRAN ABSOLUTE AUTO 0.06 K/mm3 (0.00-0.10); IMMATURE GRAN PERCENT AUTO 1 % (0-1); LYMPHOCYTES ABSOLUTE AUTO 1.08 K/mm3 (0.84-5.20); LYMPHOCYTES PERCENT AUTO 10 % (21-46); MONOCYTES ABSOLUTE AUTO 1.38 K/mm3 (0.16-1.47); MONOCYTES PERCENT AUTO 13 % (4-13); Mean Corpuscular HGB Conc 35.1 g/dL (31.5-36.5); Mean Corpuscular Volume 84 fL (80-100); NEUTROPHILS ABSOLUTE AUTO 8.06 K/mm3 (1.96-9.15); NEUTROPHILS PERCENT AUTO 74 % (41-73); NRBC ABSOLUTE 0.00 K/mm3 (0.00-0.02); NRBC Auto 0.0 /100 WBC (0.0-0.2); Platelet Count 289 K/mm3 (150-400); RDW Coefficient Variation 15.6 % (11.7-14.2); RDW Standard Deviation 47.9 fL (35.1-46.3)
[2025-03-20 05:49] LABS: Alanine Aminotransfer (ALT/SGP 52.0 U/L (12-78); Albumin, Blood 2.6 g/dL (3.4-5.0); Albumin/Globulin Ratio 0.8 (0.8-1.8); Anion Gap 9.0 mmol/L (3-11); Aspartate Aminotrans (AST/SGOT 54.0 U/L (12-37); Bilirubin, Total 1.0 mg/dL (0.1-1.0); Blood Urea Nitrogen 109.0 mg/dL (8-24); CO2, Blood 26.0 mmol/L (21-32); Calcium, Blood 8.4 mg/dL (8.5-10.1); Chloride, Blood 97.0 mmol/L (98-108); Creatinine, Blood 1.66 mg/dL (0.60-1.20); Globulin, Blood 3.1 g/dL (2.2-4.0); Glucose, Blood 182.0 mg/dL (70-99); Potassium, Blood 3.4 mmol/L (3.5-5.5); Sodium, Blood 129.0 mmol/L (136-145); Total Protein, Blood 5.7 g/dL (6.4-8.2)
--- NOTE | 2025-03-20 06:25 | NUR ---
SHIFT SUMMARY PT IS ALERT AND ORIENTED TIMES 3. PT IS FULL CODE. ADMITTED FOR HEPATIC ENCEPHALOPATHY . PT HAS TELE READING SINUS RHYTHM 74. PT IS RECEPTIVE TO CARE. PT TAKES MEDICATION WHOLE WITH WATER. PT HAS LOPEZ IN PLACE DRAINING TO GRAVITY. PT APPEARED TO SLEEP ON AND OFF THROUGH THE NIGHT. BED IS IN LOW POSITION, RAILS TIMES TWO, AND CALL LIGHT WITHIN REACH.
[2025-03-20] MEDS ORDERED: Insulin Human Lispro 100 Units/ML 3ML Syringe SC SCH ×2 (07:30)
[2025-03-20 07:32] VITALS: BP 110/73
--- NOTE | 2025-03-20 08:54 | NUR ---
CALLED FOR IR CONSULT; SPOKE WITH DIVISION CHIEF SERVICE.
[2025-03-20] MEDS ORDERED: Lactobacil 2-S.Thermo-Bifido 1 1 Cap PO SCH (09:00)
[2025-03-20] MEDS ORDERED: Polyethylene Glycol 3350 17 gm PO SCH (09:00)
--- NOTE | 2025-03-20 09:36 | NUR ---
CALLED DR. SWAN HE WILL COME AND SEE THE PATIENT
[2025-03-20 11:36] VITALS: BP 111/82
[2025-03-20 15:36] VITALS: BP 110/70
--- NOTE | 2025-03-20 16:38 | NUR ---
SHIFT SUMMARY: NO EVENTS OR CHANGES WITH THE PATIENT THROUGHOUT THE SHIFT. PENDING A PARACENTESIS POSSIBLY 03/20/25 WHEN DX RADIOLOGY IS ON SITE TO DO IT. AUREATENT PLEASANT, NO COMPLAINTS, NO BM THIS SHIFT, VISITED BY PALLATIVE TODAY AND FAMILY. PATIENT IN BED,ALERT, CALL LIGHT WITHIN REACH, NO SIGNS OR DISTRESS, FAMILY AT BEDSIDE, PLAN OF CARE ONGOING.
[2025-03-20] MEDS ORDERED: Insulin Glargine-Yfgn 100 Unit/mL 3 ML SYR SC SCH (21:00)
[2025-03-20 21:05] VITALS: BP 140/88
[2025-03-21] VITALS (8 sets, daily range): BP systolic 96–116; BP diastolic 62–83
[2025-03-21 05:17] LABS: BASOPHILS ABSOLUTE AUTO 0.04 K/mm3 (0.00-0.23); BASOPHILS PERCENT AUTO 0 % (0-2); EOSINOPHILS ABSOLUTE AUTO 0.80 K/mm3 (0.00-0.68); EOSINOPHILS PERCENT AUTO 6 % (0-6); Hematocrit 36.4 % (37.0-53.0); Hemoglobin 13.0 g/dL (13.5-17.5); IMMATURE GRAN ABSOLUTE AUTO 0.06 K/mm3 (0.00-0.10); IMMATURE GRAN PERCENT AUTO 1 % (0-1); LYMPHOCYTES ABSOLUTE AUTO 1.12 K/mm3 (0.84-5.20); LYMPHOCYTES PERCENT AUTO 9 % (21-46); MONOCYTES ABSOLUTE AUTO 1.58 K/mm3 (0.16-1.47); MONOCYTES PERCENT AUTO 13 % (4-13); Mean Corpuscular HGB Conc 35.7 g/dL (31.5-36.5); Mean Corpuscular Volume 85 fL (80-100); NEUTROPHILS ABSOLUTE AUTO 8.94 K/mm3 (1.96-9.15); NEUTROPHILS PERCENT AUTO 71 % (41-73); NRBC ABSOLUTE 0.00 K/mm3 (0.00-0.02); NRBC Auto 0.0 /100 WBC (0.0-0.2); Platelet Count 282 K/mm3 (150-400); RDW Coefficient Variation 15.4 % (11.7-14.2); RDW Standard Deviation 47.9 fL (35.1-46.3)
[2025-03-21 05:44] LABS: Alanine Aminotransfer (ALT/SGP 54.0 U/L (12-78); Albumin, Blood 2.4 g/dL (3.4-5.0); Albumin/Globulin Ratio 0.7 (0.8-1.8); Anion Gap 8.0 mmol/L (3-11); Aspartate Aminotrans (AST/SGOT 58.0 U/L (12-37); Bilirubin, Total 0.7 mg/dL (0.1-1.0); Blood Urea Nitrogen 75.0 mg/dL (8-24); CO2, Blood 28.0 mmol/L (21-32); Calcium, Blood 8.1 mg/dL (8.5-10.1); Chloride, Blood 97.0 mmol/L (98-108); Creatinine, Blood 1.56 mg/dL (0.60-1.20); Globulin, Blood 3.3 g/dL (2.2-4.0); Glucose, Blood 147.0 mg/dL (70-99); Potassium, Blood 3.2 mmol/L (3.5-5.5); Sodium, Blood 130.0 mmol/L (136-145); Total Protein, Blood 5.7 g/dL (6.4-8.2)
--- NOTE | 2025-03-21 05:55 | NUR ---
SHIFT SUMMARY PT IS ALERT AND ORIENTED TIMES 3. PT IS FULL CODE. ADMITTED FOR HEPATIC ENCEPHALOPATHY . PT IS RECEPTIVE TO CARE. PT HAS IR PROVIDER CONSULT THIS AM AND PARACENTESIS ON SATURDAY. PT TAKES MEDICATION WHOLE WITH WATER. PT HAS PT HAS LOPEZ IN PLACE DRAINING TO GRAVITY. PT AT ONE POINT WAS CONFUSED AND USED PADDED BENCH IN ROOM BEDSIDE COMMODE. PT WAS SHOWERED AND CLEANED UP, WITH EVS CLEANING ROOM. PT APPEARED TO SLEEP ON AND OFF THROUGH THE NIGHT. BED IS IN LOW POSITION, RAILS TIMES TWO, AND CALL LIGHT WITHIN REACH.
[2025-03-21] MEDS ORDERED: Albumin (Human) 25gm/100ml 100 ML IV SCH (15:30)
[2025-03-21 16:01] LABS: Automated BF RBC Count 0.044 M/mm3 (0-0); Automated BF WBC Count 0.426 K/mm3 (0-999)
[2025-03-21 16:14] LABS: RBC Count, Body Fluid 44000 /mm3 (0-0)
[2025-03-21 16:15] LABS: Color, Body Fluid Amber (None-Yellow)
[2025-03-21 16:35] LABS: Lactate Dehydrogenase, Body Fl 82 U/L
[2025-03-21 17:01] LABS: Lymphocytes, Fluid 78.0 % (0.0-18.0); Monocytes/Mononuclear, Fluid 6.0 % (0.0-50.0); Neutrophils, Fluid 14.0 % (0.0-25.0); Total Cell Count, Body Fluid 100
--- NOTE | 2025-03-21 19:25 | NUR ---
SHIFT SUMMARY PT IS A/OX3, CONFUSION TO DATE/TIME. PARACENTESIS COMPLETED THIS AFTERNOON WITH 8.7 L OF FLUID OFF. VITAL SIGNS MONITORING INTITIATED. FAMILY AT BEDSIDE THROUGHOUT THIS SHIFT AND DISCUSSED AFTER A DISCUSSION WITH PALIATIVE CARE ELECTED FOR HOME WITH HOSPICE UPON DISCHARGE. LOPEZ IN PLACE DRAINING CLEAR, YELLOW URINE. PT IS PLEANSANT AND COOPERATIVE WITH CARE AND CALLS APPROPRIATELY USING THE CALL LIGHT.
[2025-03-22 04:33] VITALS: BP 100/68
[2025-03-22 05:09] LABS: BASOPHILS ABSOLUTE AUTO 0.10 K/mm3 (0.00-0.23); BASOPHILS PERCENT AUTO 1 % (0-2); EOSINOPHILS ABSOLUTE AUTO 1.59 K/mm3 (0.00-0.68); EOSINOPHILS PERCENT AUTO 12 % (0-6); Hematocrit 38.3 % (37.0-53.0); Hemoglobin 13.3 g/dL (13.5-17.5); IMMATURE GRAN ABSOLUTE AUTO 0.11 K/mm3 (0.00-0.10); IMMATURE GRAN PERCENT AUTO 1 % (0-1); LYMPHOCYTES ABSOLUTE AUTO 1.42 K/mm3 (0.84-5.20); LYMPHOCYTES PERCENT AUTO 10 % (21-46); MONOCYTES ABSOLUTE AUTO 1.64 K/mm3 (0.16-1.47); MONOCYTES PERCENT AUTO 12 % (4-13); Mean Corpuscular HGB Conc 34.7 g/dL (31.5-36.5); Mean Corpuscular Volume 86 fL (80-100); NEUTROPHILS ABSOLUTE AUTO 8.75 K/mm3 (1.96-9.15); NEUTROPHILS PERCENT AUTO 64 % (41-73); NRBC ABSOLUTE 0.00 K/mm3 (0.00-0.02); NRBC Auto 0.0 /100 WBC (0.0-0.2); Platelet Count 234 K/mm3 (150-400); RDW Coefficient Variation 15.0 % (11.7-14.2); RDW Standard Deviation 47.3 fL (35.1-46.3)
[2025-03-22 05:33] LABS: Alanine Aminotransfer (ALT/SGP 56.0 U/L (12-78); Albumin, Blood 3.2 g/dL (3.4-5.0); Albumin/Globulin Ratio 1.1 (0.8-1.8); Anion Gap 11.0 mmol/L (3-11); Aspartate Aminotrans (AST/SGOT 71.0 U/L (12-37); Bilirubin, Total 1.5 mg/dL (0.1-1.0); Blood Urea Nitrogen 59.0 mg/dL (8-24); CO2, Blood 26.0 mmol/L (21-32); Calcium, Blood 8.1 mg/dL (8.5-10.1); Chloride, Blood 90.0 mmol/L (98-108); Creatinine, Blood 1.4 mg/dL (0.60-1.20); Globulin, Blood 2.8 g/dL (2.2-4.0); Glucose, Blood 126.0 mg/dL (70-99); Potassium, Blood 3.5 mmol/L (3.5-5.5); Sodium, Blood 123.0 mmol/L (136-145); Total Protein, Blood 6.0 g/dL (6.4-8.2)
--- NOTE | 2025-03-22 05:49 | NUR ---
PT A&O TO PERSON AND PLACE. PT HAS HAD LOOSE BROWN STOOL T/O HIS SHIFT. BOWEL TONES HYPERACTIVE. C/0 PAIN IN LEGS TYLENOL GIVEN RX, PT FELL ASLEEP SOON AFTER. LOPEZ PATENT AND INTACT DRAINING CLEAR YELLOW URINE. PT INCONTINENT OF STOOL. NO ACUTE CHANGES NOTED THIS SHIFT
[2025-03-22 07:14] VITALS: BP 92/52
[2025-03-22] MEDS ORDERED: NS 250 ML IV ONE (10:39)
[2025-03-22] MEDS ORDERED: FentaNYL Citrate 50 MCG/ML 2 ML Injection ONE (11:09)
[2025-03-22] MEDS ORDERED: NS 500 ML IV ONE (11:09)
[2025-03-22] MEDS ORDERED: Midazolam HCl 1MG / ML 2ML Vial ONE (11:09)
[2025-03-22] MEDS ORDERED: Insulin Regular 100 UNIT/ML 10ML Vial SC SCH (12:00)
[2025-03-22 12:57] VITALS: BP 100/67
[2025-03-22] MEDS ORDERED: Insulin Human Lispro 100 Units/ML 3ML Syringe SC SCH ×2 (13:05→16:30)
[2025-03-22 15:43] VITALS: BP 90/65
--- NOTE | 2025-03-22 18:14 | NUR ---
SHIFT SUMARY: A&0X2-3 THIS SHIFT. PLESANT WITH CARE PROVIDED. PT WAS SCHEDULED TO HAVE PLEURX DRAIN PLACED TODAY AND WAS TAKEN TO OR, BUT WAS SENT BACK DUE TO AN INSUFFICIENT AMOUNT OF FLUID IN ABDOMEN FOR DRAIN PLACEMENT. PALLIATIVE CARE CONSULT PLACED TODAY TO SPEAK WITH PT. FAMILY CAME TO VISIT THIS AFTERNOON. MEDICATED PER EMAR. BED REMAINS IN THE LOWEST POSITION. CALL LT WITHIN REACH.
[2025-03-22 20:15] VITALS: BP 81/58
[2025-03-23 02:43] VITALS: BP 83/54
--- NOTE | 2025-03-23 05:08 | NUR ---
PT A&O TO PERSON. PT C/0 PAIN IN BLE TYLENOL GIVEN RX. PT FELL ASLEEP SOON AFTER. PT C/0 ABD PAIN DISCUSSED WITH HOSPITALIST PAIN MED GIVEN RX, PT REPORTS TRAMADOL RELIVED PAIN TO 0/10. PT HAS BEEN HYPOTENSIVE T/O THIS SHIFT. PT IS ASYMPTOMATIC. DISCUSSED WITH HOSPITALIST WILL CONTINUE TO MONITOR PT. LOPEZ IN PLACE AND DRAINING ORANGE COLORED URINE.
[2025-03-23 05:10] LABS: BASOPHILS ABSOLUTE AUTO 0.08 K/mm3 (0.00-0.23); BASOPHILS PERCENT AUTO 1 % (0-2); EOSINOPHILS ABSOLUTE AUTO 0.77 K/mm3 (0.00-0.68); EOSINOPHILS PERCENT AUTO 4 % (0-6); Hematocrit 38.6 % (37.0-53.0); Hemoglobin 13.9 g/dL (13.5-17.5); IMMATURE GRAN ABSOLUTE AUTO 0.36 K/mm3 (0.00-0.10); IMMATURE GRAN PERCENT AUTO 2 % (0-1); LYMPHOCYTES ABSOLUTE AUTO 1.25 K/mm3 (0.84-5.20); LYMPHOCYTES PERCENT AUTO 7 % (21-46); MONOCYTES ABSOLUTE AUTO 2.09 K/mm3 (0.16-1.47); MONOCYTES PERCENT AUTO 12 % (4-13); Mean Corpuscular HGB Conc 36.0 g/dL (31.5-36.5); Mean Corpuscular Volume 84 fL (80-100); NEUTROPHILS ABSOLUTE AUTO 13.18 K/mm3 (1.96-9.15); NEUTROPHILS PERCENT AUTO 74 % (41-73); NRBC ABSOLUTE 0.00 K/mm3 (0.00-0.02); NRBC Auto 0.0 /100 WBC (0.0-0.2); Platelet Count 290 K/mm3 (150-400); RDW Coefficient Variation 14.6 % (11.7-14.2); RDW Standard Deviation 44.3 fL (35.1-46.3)
[2025-03-23 05:52] LABS: Alanine Aminotransfer (ALT/SGP 64.0 U/L (12-78); Albumin, Blood 2.8 g/dL (3.4-5.0); Albumin/Globulin Ratio 1.0 (0.8-1.8); Anion Gap 13.0 mmol/L (3-11); Aspartate Aminotrans (AST/SGOT 71.0 U/L (12-37); Bilirubin, Total 1.0 mg/dL (0.1-1.0); Blood Urea Nitrogen 57.0 mg/dL (8-24); CO2, Blood 22.0 mmol/L (21-32); Calcium, Blood 7.8 mg/dL (8.5-10.1); Chloride, Blood 88.0 mmol/L (98-108); Creatinine, Blood 1.69 mg/dL (0.60-1.20); Globulin, Blood 2.9 g/dL (2.2-4.0); Glucose, Blood 193.0 mg/dL (70-99); Potassium, Blood 4.2 mmol/L (3.5-5.5); Sodium, Blood 119.0 mmol/L (136-145); Total Protein, Blood 5.7 g/dL (6.4-8.2)
[2025-03-23 07:17] VITALS: BP 96/64
[2025-03-23 07:21] VITALS: BP 94/66
--- NOTE | 2025-03-23 08:00 | NUR ---
CALLED DR VALDEZ- PT LAYING IN BED, BP HAS BEEN HYPOTENSIVE T/O THE NIGHT. PT HAD A CRITICALLY LOW SODIUM THIS MORNING. DR VALDEZ NOTIFIED. PT IS MORE SLUGGISH AND A LITTLE MORE CONFUSED WHEN COMPARED TO YESTERDAY. NEPHROLOGY HAS SIGNED OFF ON THE CASE AND WILL NEED TO BE CALLED IN AGAIN IF THEY ARE NEEDED. IT IS UNCERTAIN IF THE PT IS GOING HOME WITH HOSPICE AND A DRAIN AND LOPEZ, OR IF HE IS GOING HOME WITH HOME HEALTH AND NOT DRAIN OR LOPEZ. WILL COME TO SEE THE PT. PT REMAINS A FULL CODE AT THIS TIME.
--- NOTE | 2025-03-23 08:22 | NUR ---
CODE STATUS??? PT IS CURRENTLY LISTED A FULL CODE. SPOKE TO HIM ABOUT HIS PLAN FOR DISCHRGE, HE HAS CHOSEN TO GO HOME HEALTH VS HOSPICE. AFTER GIVING THE PT ALL OF THE INFORMATION SO HE CAN MAKE AND INFORMED DECISION, THIS RN ASKED HIM IF THIS RN SHOULD CONTACT A FAMILY MEMBER TO HELP HIM. THE PT INDICATED THIS RN SHOULD CALL HIS SISTER RAJESH GRAY. CALLED RAJESH GRAY AND SPOKE TO HER. SHE STATES THE PT IS VERY CONFUSED RIGHT NOW SHE AND HIS DAUGHTER PAULINE AGREE THAT HE IS PLANNING TO GO HOME ON HOSPICE WITH A PLEUR-EVAC DRAIN. SPOKE TO HER THE PT IS A FULL CODE AT THIS TIME, SHE SEEMED DISTRESSED ABOUT THE CODE STATUS AND STATES PAULINE IS ON HER WAY IN NOW, TO TRY TO CLEAR UP THE DISCHARGE PLANNING CONFUSION.
[2025-03-23 08:59] VITALS: BP 93/69
[2025-03-23 12:51] VITALS: BP 105/70
--- NOTE | 2025-03-23 17:27 | NUR ---
SHIFT SUMMARY- PT HAS MADE THE DECISION TO GO HOME ON HOSPICE TOMORROW. PLAN IS FOR THE PT TO DC IN THE AFTERNOON, HOME ON HOSPICE. HE HAS AN APPOINTMENT SCHEDULED OUT PT TO HAVE THE PLUR-EVAC DRAIN PLACED ON 03-29-25 CHECK IN TIME IS AT 0700 AND THE PROCEDURE IS SET FOR 0800. CONSENT FORM IS SIGNED. PT HAD A CRITICALLY LOW SODIUM THIS MORNING. SPOKE TO DR VALDEZ, DR WILBURN CAME TO SEE THE PT AGAIN TODAY, HE ORDERED A OT DOSE OF LASIX, THEN REALIZED THE HYPOTENSION THE PT HAS BEEN HAVING, HE ASKED THIS RN TO HOLD THAT DOSE. THE PT IS ON ORAL SODIUM TABS AT HOME AND IS NOT ON THEM HERE, THIS COULD CONTRIBUTE TO THE ISSUE. PT HAS A RENAL PANEL ORDERED FOR 1800 TODAY. PT IS IN BED, CALL LIGHT IN REACH, BED ALARM SET FOR PT SAFTY. NO CURRENT S&S OF DISTRESS NOTED.
[2025-03-23 19:20] LABS: Albumin, Blood 2.5 g/dL (3.4-5.0); Anion Gap 11 mmol/L (3-11); Blood Urea Nitrogen 63 mg/dL (8-24); CO2, Blood 23 mmol/L (21-32); Calcium, Blood 7.7 mg/dL (8.5-10.1); Chloride, Blood 87 mmol/L (98-108); Creatinine, Blood 1.66 mg/dL (0.60-1.20); Glucose, Blood 204 mg/dL (70-99); Phosphorus, Blood 4.2 mg/dL (2.5-4.9); Potassium, Blood 4.3 mmol/L (3.5-5.5); Sodium, Blood 117 mmol/L (136-145)
[2025-03-23] MEDS ORDERED: NS 1,000 ML IV SCH (19:55)
[2025-03-23 20:04] VITALS: BP 98/66
--- NOTE | 2025-03-23 20:10 | NUR ---
CALLED CRITICAL VALUE TO [facility] AND HE ASKED THAT THIS RN NOTIFY DR SWAN. CALLED DR SWAN. PER HE WOULD LIKE THE PT TO RECIEVE 1L NS TONIGHT FOLLOWED BY PO LASIX AND PO SODIUM TABS IN THE AM. PT HAS BEEN GROGGY AND MORE CONFUSED ALL DAY. BP'S HAVE BEEN SOFT. SBP 80'S-90'S. PT IS SITTING UP IN BED CALL LIGHT IN REACH NO S&S OF DISTRESS NOTED.
[2025-03-24 03:20] VITALS: BP 100/72
--- NOTE | 2025-03-24 04:07 | NUR ---
SHIFT SUMMARY PATIENT HAD NO ACUTE CHANGES. AXO X 2 WITH CONFUSION AT TIMES. ANSWERING MY QUESTIONS WHEN ASKED. BEDREST. PIV INTACT. NS INFUSING @ 100 mL/HR X ONE. DENIES CHEST PAIN, SOB, AND N/V. AFEBRILE. SOFT BP. CBG 224. SLEPT MOST OF THE SHIFT. FAMILY LEFT SHORTLY AFTER SHIFT CHANGE. CALL LIGHT IN REACH. BED IN LOWEST POSITION. WILL CONTINUE TO MONITOR UNTIL DAY SHIFT NURSE ASSUMES CARE.
[2025-03-24 07:43] VITALS: BP 86/67
[2025-03-24 10:10] VITALS: BP 96/62
--- NOTE | 2025-03-24 10:22 | NUR ---
CALLED DR VALDEZ- PT SBP WAS 80'S THIS AM MEDICATED WITH SCHEDULED MIDODRENE RECHECK SHOWED SBP IN THE 90'S. ORDER RECIEVED TO GIVE THE PO LASIX AND HOLD THE JARDIANCE.
--- NOTE | 2025-03-24 11:15 | NUR ---
MET WITH PT'S DTR PAULINE THIS MORNING. FILLED OUT POLST TO REFLECT FULL CODE WITH SELECTIVE MEDICAL INTERVENTIONS. PT IS GOING HOME THIS AFTERNOON WITH [facility] CODE STATUS HAS BEEN REVIEWED SEVERAL TIMES BY THIS PC RN, ANOTHER PC RN AND TWO DIFFERENT PROVIDERS. THERAPUTIC LISTENING PROVIDED TO PT'S DTR. 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 PT DENIES ANY DISCOMFORT AT THIS TIME. HE EXPRESSED THAT HE IS LOOKING FORWARD TO GOING HOME THIS AFTERNOON. PC TO REMAIN AVAILABLE NEEDED.
[2025-03-24] MEDS ORDERED: LACT10SY PO (13:18)
[2025-03-24] MEDS ORDERED: SODCHL1 PO (13:20)
[2025-03-24] MEDS ORDERED: LACT PO (13:20)
[2025-03-24] MEDS ORDERED: FURO20 PO (13:20)
[2025-03-24] MEDS ORDERED: BENZ100A PO (13:21)
--- NOTE | 2025-03-24 13:26 | NUR ---
"Spiritual Care | Family Support Pt. is awake and is being prepped for discharge. Family are at bedside and welcome my visit. Pt. is pleasant. The palliative spiritual care request came as the daughter of the Pt. was looking for an officiant for a wedding in two days on March 26. This clinical editor, though not available, was able to assit the bride to be of some lergy options in the are, though most of them she had already considered. Family verbalized gratitude for sharing the local resources in their community."
--- NOTE | 2025-03-24 16:19 | NUR ---
DISCHARGE NOTE- PT WAS DISCHARGED HOME THIS AFTERNOON HIS DAUGHTER WAS PRESENT AT THE TIME OF DISCHARGE AND ACKNOWLEDGED UNDERSTANDING OF THE INSTRUCTIONS. PT WAS TAKEN HOME BY [facility] FOR SAME DAY ADMISSION TO [facility].
== END 2025-03-24 13:35 | disposition hospice, home (50) | DRG 442 ==
LOC: ER 16:35 → MEDS 20:11
PROVIDERS: Family Medicine; Hospitalist; Student in an Organized Health Care Education/Training Program; ADMIT Internal Medicine
PROC: 0W9G3ZZ Drainage of Peritoneal Cavity, Percutaneous Approach (ICD-10-PCS; principal; 2025-03-21)
DX: K76.82 Hepatic encephalopathy (principal); E72.20 Disorder of urea cycle metabolism, unspecified; E87.1 Hypo-osmolality and hyponatremia; R18.8 Other ascites; K76.6 Portal hypertension; I42.9 Cardiomyopathy, unspecified; N17.9 Acute kidney failure, unspecified; K75.81 Nonalcoholic steatohepatitis (NASH); K74.69 Other cirrhosis of liver; Z51.5 Encounter for palliative care; E66.9 Obesity, unspecified; E78.5 Hyperlipidemia, unspecified; K72.10 Chronic hepatic failure without coma; L22 Diaper dermatitis; E86.0 Dehydration; I11.0 Hypertensive heart disease with heart failure; I50.9 Heart failure, unspecified; N40.0 Benign prostatic hyperplasia without lower urinary tract symptoms; E87.6 Hypokalemia; E11.59 Type 2 diabetes mellitus with other circulatory complications; I95.89 Other hypotension; Z79.2 Long term (current) use of antibiotics; Z79.84 Long term (current) use of oral hypoglycemic drugs; Z79.4 Long term (current) use of insulin; Z68.35 Body mass index [BMI] 35.0-35.9, adult
CPT/HCPCS: 36415; 49083; 51702; 70450; 80053; 80069; 82140; 82947; 83036; 83615; 83735; 84484; 85025; 85610; 85730; 87070; 87075; 87205; 89051; 93005; 93010; 99152; 99153; 99285-25; A9270; J0696; J1815; J2250; J3010; J7030; J7040; J7050; P9047